=== PATIENT | male | born 1950 | race Caucasian/White ===

== ENCOUNTER 2017-11-29 15:15 | Inpatient (IN) | payer MEDICARE, BC ==
[~2017-11-29] VITALS: Ht 182.9 cm; Wt 83.9 kg
[2017-11-29] MEDS ORDERED: Isovue-300 100ml vial INJ PRN (15:30)
--- NOTE | 2017-11-29 15:39 | Emergency Room Report ---
History of Present Illness General Chief Complaint: Abdominal Pain Source: Patient Present Illness HPI 67-year-old male with a history of HIV, last CD4 a few months ago and undetectable Reports 2 weeks of intermittent abdominal pain, bandlike pain across the mid abdomen Sharp, nonradiating, improves with passing flatulence Partial relief with Gas-X No obvious exacerbating symptomatology Currently on antiretrovirals for many years Reports no changes in medications, no recent antibiotic use Denies vomiting nausea, diarrhea constipation, rectal bleeding Was sent by his primary doctor Dr. Sotelo for a CT scan Allergies: Coded Allergies: No Known Allergies (Unverified , 11/29/17) Patient History Past Medical History: see triage record Reviewed Nursing Documentation: PMH: Agreed; PSxH: Agreed Review of Systems All Other Systems: negative except mentioned in HPI Physical Exam Vital Signs Date Time Temp Pulse Resp B/P (MAP) Pulse Ox O2 Delivery O2 Flow Rate FiO2 11/29/17 15:19 98.5 98 20 120/69 95 Room Air 98.4 Sp02 EP Interpretation: reviewed, normal General Appearance: no apparent distress, alert, non-toxic Head: normocephalic Eyes: bilateral eye normal inspection, bilateral eye PERRL, bilateral eye EOMI ENT: normal ENT inspection, hearing grossly normal, normal pharynx, no angioedema, normal voice, moist mucus membranes Neck: normal inspection, full range of motion, supple, supple/symm/no masses Respiratory: chest non-tender, lungs clear, normal breath sounds, chest symmetrical, palpation of chest normal Cardiovascular #1: normal peripheral pulses, regular rate, rhythm Cardiovascular #2: 2+ radial (R), 2+ radial (L), 2+ femoral (R), 2+ femoral (L) Gastrointestinal: normal inspection, non tender, soft, no mass, no guarding, no rebound Rectal: deferred Genitourinary: normal inspection, no CVA tenderness, penis normal, scrotum normal Musculoskeletal: back normal, gait/station normal, normal range of motion, non- tender, no calf tenderness Neurologic: alert, responsive, mate fourth III-XII nml as tested, motor strength/tone normal, sensory intact, speech normal Psychiatric: judgement/insight normal, memory normal, mood/affect normal Skin: normal color, no rash, warm/dry, normal turgor Lymphatic: no adenopathy Medical Decision Making Diagnostic Impression: Primary Impression: Diverticulitis large intestine Additional Impression: Perforated abdominal viscus ER Course Patient found to have a perforated diverticulitis Started on IV antibiotics Patient remained stable Surgery notified, Dr. Fallon is on route Patient remains nothing by mouth Rhythm Strip Diag. Results Rhythm Strip Time: 18:36 EP Interpretation: yes Rate: 94 Rhythm: NSR, no PVC's, no ectopy CT/MRI/US Diagnostic Results CT/MRI/US Diagnostic Results : Imaging Test Ordered: ct abd pelvis Impression perf'd diverticulitis Last Vital Signs Date Time Temp Pulse Resp B/P (MAP) Pulse Ox O2 Delivery O2 Flow Rate FiO2 11/29/17 15:19 98.5 98 20 120/69 95 Room Air 98.4 Disposition: ADMITTED INPATIENT Condition: Stable Signed Out To: Dr. Fallon consulting, admitted to GISELLE Ochoa M.D November 29, 2017 15:39
[2017-11-29] MEDS ORDERED: Dicyclomine 10mg Cap ORAL SCH (16:10)
[2017-11-29] MEDS ORDERED: Dicyclomine HCl 10mg/5ml oral soln ONE (16:12)
[2017-11-29 16:13] LABS: APPEARANCE,URINE CLEAR; BILIRUBIN, URINE NEGATIVE (NEGATIVE); COLOR,URINE AMBER; GLUCOSE, URINE (UA) NEGATIVE (NEGATIVE); HEMATOCRIT 40.6 % (42.0-52.0); HEMOGLOBIN 14.2 G/DL (14.2-18.0); KETONES,URINE 2+ (NEGATIVE); LEUKOCYTE ESTERASE ,URINE 1+ (NEGATIVE); MEAN CORPUSCULAR VOLUME 91 FL (80-99); NITRITE,URINE NEGATIVE (NEGATIVE); PH,URINE 9 (4.5-8.0); PLATELET COUNT 178 K/UL (150-450); PROTEIN,URINE 1+ (NEGATIVE); RED BLOOD COUNT 4.47 M/UL (4.70-6.10); RED CELL DISTRIBUTION WIDTH 10.6 % (11.6-14.8); UROBILINOGEN,URINE 1 MG/DL (0.0-1.0); WHITE BLOOD COUNT 11.1 K/UL (4.8-10.8)
[2017-11-29 16:14] LABS: BASOPHILS % (AUTO) 0.2 % (0.0-2.0); LYMPHOCYTES % (AUTO) 10.5 % (20.0-45.0); MONOCYTES % (AUTO) 4.1 % (1.0-10.0); NEUTROPHILS % (AUTO) 85.1 % (45.0-75.0)
[2017-11-29 16:26] LABS: ANION GAP 8 mmol/L (5-15); BLOOD UREA NITROGEN 16 mg/dL (7-18); CALCIUM 9.2 MG/DL (8.5-10.1); CARBON DIOXIDE 28 MMOL/L (21-32); CHLORIDE 102 MMOL/L (98-107); CREATININE 0.9 MG/DL (0.55-1.30); POTASSIUM 3.5 MMOL/L (3.5-5.1); SODIUM 138 MMOL/L (136-145)
[2017-11-29 16:31] LABS: ALANINE AMINOTRANSFERASE 31 U/L (12-78); ALBUMIN 3.7 G/DL (3.4-5.0); ALBUMIN/GLOBULIN RATIO 1.1 (1.0-2.7); ALKALINE PHOSPHATASE 63 U/L (46-116); ASPARTATE AMINO TRANSFERASE 15 U/L (15-37)
[2017-11-29 18:00] VITALS: BP 117/67
[2017-11-29] MEDS ORDERED: Unasyn 3gm Inj IVPB ONE (18:30)
[2017-11-29] MEDS: Piperacillin/Tazobactam 3.375 GM in D5W 55 ML IV SCH ×2 (18:47→18:50)
--- NOTE | 2017-11-29 19:24 | Pre-Procedure Note/Attestation ---
Pre-Procedure Note/Attestation Complete Prior to Procedure Planned Procedure: not applicable Procedure Narrative: Exploratory laparotomy, possible bowel resection, possible ostomy Indications for Procedure Pre-Operative Diagnosis: Perforated sigmoid diverticulitis Attestation I attest that I discussed the nature of the procedure; its benefits; risks and complications; and alternatives (and the risks and benefits of such alternatives ), prior to the procedure, with the patient (or the patient's legal public utilities sales representative). I attest that, if there was a reasonable possibility of needing a blood transfusion, the patient (or the patient's legal public utilities sales representative) was given the [facility] standardized written summary, pursuant to the Chris Garwin Blood Safety Act ([place] Health and Safety Code # 1645, as amended). I attest that I re-evaluated the patient just prior to the surgery and that there has been no change in the patient's H&P, except as documented below: Quan Fallon November 29, 2017 19:24
--- NOTE | 2017-11-29 19:34 | Consultation ---
History of Present Illness General Date patient seen: November 29, 2017 Chief Complaint: Abdominal Pain Reason for Consultation: perforated sigmoid diverticulitis Present Illness HPI 67 year old male with history of HIV (controlled) presented to ED with complaints of abdominal pain. As per patient, he has had intermittent abdominal pain since his 30's. He believed it to be related to IBS and has moderated himself. Two weeks ago he had acute onset of lower abdominal pain which resolved without intervention but yesterday had another episode and has been feeling unwell since. States pain 6/10 lower/generalized abdominal cramping pain without radiation. no associated nausea or emesis. subjective fevers last night. has been having more frequent BM's since onset which are more loose than usual. Was at his PCP office today and on exam was noted to have abdominal tenderness, rebound and guarding. was recommended to come to ED for evaluation at which time was noted to have leukocytosis and CT scan noting free air. Surgery was called to evaluate. patient seen, chart reviewed, patient examined. Allergies: Coded Allergies: No Known Allergies (Unverified , 11/29/17) Patient History History Provided By: Patient, Medical Record, PMD Healthcare decision maker Resuscitation status Advanced Directive on File Past Medical/Surgical History Past Medical/Surgical History: (1) HIV (human immunodeficiency virus infection) (2) Diverticulitis large intestine (3) Perforated abdominal viscus Review of Systems Constitutional: Reports: fever Eye: Denies: no symptoms, see HPI, eye pain, blurred vision, tearing, double vision, nose pain, nose congestion, acuity changes, discharge, other ENT: Denies: no symptoms, see HPI, ear pain, ear discharge, nose pain, nose congestion, throat pain, throat swelling, mouth pain, hearing loss, nasal discharge, other Respiratory: Denies: no symptoms, see HPI, cough, orthopnea, shortness of breath, stridor, wheezing, WANG, sputum, other Cardiovascular: Denies: no symptoms, see HPI, chest pain, edema, palpitations, syncope, PND, other Gastrointestinal: Reports: abdominal pain Genitourinary: Denies: no symptoms, see HPI, discharge, dysuria, frequency, hematuria, pain, retention, incontinence, urgency, vag bleed/dc, other Musculoskeletal: Denies: no symptoms, see HPI, back pain, gout, joint pain, joint swelling, muscle pain, muscle stiffness, other Skin: Denies: no symptoms, see HPI, rash, change in color, change in hair/nails , dryness, lesions, other Psychiatric: Denies: no symptoms, see HPI, prior hx, anxiety, depressed feelings, emotional problems, SI, HI, hallucinations, other Neurological: Denies: no symptoms, see HPI, headache, numbness, paresthesia, seizure, tingling, tremors, focal weakness, syncope, dizziness, other Endocrine: Denies: no symptoms, see HPI, excessive sweating, flushing, intolerance to temperature, increased thirst, increased urine, unexplained weight loss, other Hematologic/Lymphatic: Denies: no symptoms, see HPI, anemia, blood clots, easy bleeding, easy bruising, swollen glands, diathesis, other Physical Exam General Appearance: WD/WN, alert, mild distress Lines, tubes and drains: peripheral HEENT: normocephalic, atraumatic, mucous membranes moist, PERRL Neck: supple Respiratory/Chest: lungs clear, normal breath sounds, no respiratory distress, no accessory muscle use Cardiovascular/Chest: normal peripheral pulses, normal rate, regular rhythm Abdomen: soft, no organomegaly, no mass, distended, guarding, rebound, tender, other - generalized tenderness with focal pelvic/LLQ peritonitis, rebound, guarding Extremities: normal range of motion, non-tender Skin Exam: normal pigmentation, warm/dry Neurologic: alert, oriented x 3, responsive Last 24 Hour Vital Signs Date Time Temp Pulse Resp B/P (MAP) Pulse Ox O2 Delivery O2 Flow Rate FiO2 11/29/17 18:00 89 17 117/67 99 Room Air 11/29/17 15:19 98.5 98 20 120/69 95 Room Air 98.4 Laboratory Tests Test 11/29/17 15:43 White Blood Count 11.1 K/UL (4.8-10.8) H Red Blood Count 4.47 M/UL (4.70-6.10) L Hemoglobin 14.2 G/DL (14.2-18.0) Hematocrit 40.6 % (42.0-52.0) L Mean Corpuscular Volume 91 FL (80-99) Mean Corpuscular Hemoglobin 31.8 PG (27.0-31.0) H Mean Corpuscular Hemoglobin Concent 35.1 G/DL (32.0-36.0) Red Cell Distribution Width 10.6 % (11.6-14.8) L Platelet Count 178 K/UL (150-450) Mean Platelet Volume 8.6 FL (6.5-10.1) Neutrophils (%) (Auto) 85.1 % (45.0-75.0) H Lymphocytes (%) (Auto) 10.5 % (20.0-45.0) L Monocytes (%) (Auto) 4.1 % (1.0-10.0) Eosinophils (%) (Auto) 0.0 % (0.0-3.0) Basophils (%) (Auto) 0.2 % (0.0-2.0) Urine Color Roxana Urine Appearance Clear Urine pH 9 (4.5-8.0) Urine Specific Merrill 1.010 (1.005-1.035) Urine Protein 1+ (NEGATIVE) H Urine Glucose (UA) Negative (NEGATIVE) Urine Ketones 2+ (NEGATIVE) H Urine Occult Blood 1+ (NEGATIVE) H Urine Nitrite Negative (NEGATIVE) Urine Bilirubin Negative (NEGATIVE) Urine Ictotest Negative Urine Urobilinogen 1 MG/DL (0.0-1.0) H Urine Leukocyte Esterase 1+ (NEGATIVE) H Urine RBC 5-10 /HPF (0 - 0) H Urine WBC 2-4 /HPF (0 - 0) Urine Squamous Epithelial Cells None /LPF (NONE/OCC) Urine Bacteria Occasional /HPF (NONE) Sodium Level 138 MMOL/L (136-145) Potassium Level 3.5 MMOL/L (3.5-5.1) Chloride Level 102 MMOL/L (98-107) Carbon Dioxide Level 28 MMOL/L (21-32) Anion Gap 8 mmol/L (5-15) Blood Urea Nitrogen 16 mg/dL (7-18) Creatinine 0.9 MG/DL (0.55-1.30) Estimat Glomerular Filtration Rate > 60 mL/min (>60) Glucose Level 117 MG/DL (74-106) H Calcium Level 9.2 MG/DL (8.5-10.1) Total Bilirubin 1.0 MG/DL (0.2-1.0) Aspartate Amino Transf (AST/SGOT) 15 U/L (15-37) Alanine Aminotransferase (ALT/SGPT) 31 U/L (12-78) Alkaline Phosphatase 63 U/L (46-116) Total Protein 7.2 G/DL (6.4-8.2) Albumin 3.7 G/DL (3.4-5.0) Globulin 3.5 g/dL Albumin/Globulin Ratio 1.1 (1.0-2.7) Lipase 52 U/L (73-393) L Height (Feet): 6 Weight (Pounds): 185 Medications Current Medications Medications (Trade) Dose Ordered Sig/Didier Route PRN Reason Start Time Stop Time Status Last Admin Dose Admin Iopamidol (Isovue-300 100ml) 100 ml NOW PRN INJ Radiology Procedure 11/29/17 15:30 11/29/17 21:00 Piperacillin Sod/ Tazobactam Sod 3.375 gm/Dextrose 55 ml @ 110 mls/hr Q8HR IV 11/29/17 18:45 11/30/17 18:44 11/29/17 18:47 Assessment/Plan Problem List: (1) Perforated abdominal viscus Assessment & Plan: Mr. Marcum is a very pleasant 67 year old male with perforated abdominal viscus likely perforated sigmoid colon. subjective fevers , leukocytosis, exam with LLQ/pelvic focal peritonitis and generalized tenderness, CT with free air and significant diverticular disease. Findings discussed with patient in detail. surgery recommended and indicated. risks, benefits, and alternatives discussed in detail. we discussed possibility of primary anastomosis vs colostomy (Willi's) vs primary anastomosis with loop ileostomy diversion. Given long standing history of abdominal complaints, two week history of recent events, and CT findings will need to determine best surgical option during exploration. patient expressed understanding and consented to surgery. -To OR for exploratory laparotomy, possible bowel resection, possible ostomy -NPO -IV fluids -IV Abx -labs -consent thank you SNOMED: [id number] Status: not improved VasylQuan November 29, 2017 19:34
[2017-11-29 19:35] VITALS: BP 118/75
[2017-11-29] MEDS ORDERED: Bupivacaine 0.5% Inj 30 ml vial INJ ONE (20:13)
[2017-11-29] MEDS ORDERED: Bacitracin 50000 Units Vial ONE (20:14)
[2017-11-29 20:30] VITALS: BP 104/51
[2017-11-29] MEDS ORDERED: Propofol 200mg/20ml IV ONE ×2 (20:30→23:08)
[2017-11-29] MEDS ORDERED: Lidocaine 1% MPF 10mg/ml 5ml ONE (20:30)
[2017-11-29] MEDS ORDERED: Midazolam 2mg/2ml Inj ONE (20:30)
[2017-11-29] MEDS ORDERED: fentaNYL 100 mcg/2 mL IV ONE (20:30)
[2017-11-29 20:32] LABS: INR 1.2 (0.9-1.1)
[2017-11-29] MEDS ORDERED: D5 1/2NS 1,000 ML IV SCH (20:46)
[2017-11-29] MEDS ORDERED: NS Irrig 1000ml ONE (21:00)
[2017-11-29] MEDS ORDERED: Miralax 17gm pkt ORAL PRN (21:00)
[2017-11-29] MEDS ORDERED: Succinylcholine 20mg/ml 10ml vial ONE (21:00)
[2017-11-29] MEDS ORDERED: Nitroglycerin Subl 0.4mg tab SL PRN (21:00)
[2017-11-29] MEDS ORDERED: Sodium Chloride 10ml vial INJ ONE ×2 (21:00→21:37)
[2017-11-29] MEDS ORDERED: LR 1000ml ONE (21:00)
[2017-11-29] MEDS ORDERED: Zemuron 50mg/5ml Inj IV ONE (21:00)
[2017-11-29] MEDS ORDERED: Sterile Water Irrig 1000ml IRRIG ONE (21:00)
[2017-11-29] MEDS ORDERED: Heparin 5000 units/ml inj SUBQ SCH (21:00)
[2017-11-29] MEDS ORDERED: Morphine Sulfate 10mg/ml Inj ONE (21:37)
[2017-11-29] MEDS ORDERED: Ketorolac 30mg Inj ONE (21:37)
[2017-11-29] MEDS ORDERED: Glycopyrrolate 0.2mg/ml 1ml Vial ONE (21:37)
--- NOTE | 2017-11-29 21:57 | Anethesia Preoperative Eval ---
Anesthesia Pre-op PMH/ROS General Date of Evaluation: November 29, 2017 Time of Evaluation: 20:40 Anesthesiologist: Kishor ASA Score: ASA 3 Mallampati Score Class I : Soft palate, uvula, fauces, pillars visible Class II: Soft palate, uvula, fauces visible Class III: Soft palate, base of uvula visible Class IV: Only hard plate visible Mallampati Classification: Class II Surgeon: Tod Diagnosis: Perforated bowel Surgical Procedure: Exploratory laparotomy Anesthesia History: none Social History: drug use - Canabis Family History: no anesthesia problems Allergies: Coded Allergies: No Known Allergies (Unverified , 11/29/17) Medications: see eMAR Past Medical History Cardiovascular: Reports: HTN - mild; Denies: CAD, DC, valve dz, arrhythmia, other Pulmonary: Denies: asthma, COPD, DARCY, other Gastrointestinal/Genitourinary: Reports: GERD, other - recurrent abdominal pain ; Denies: CRI, ESRD Neurologic/Psychiatric: Reports: depression/anxiety Endocrine: Denies: DM, hypothyroidism, steroids, other HEENT: Denies: cataract (L), cataract (R), glaucoma, [place] (L), [place] (R), other Hematology/Immune: Reports: other - HIV stable on antivirals; Denies: anemia, DVT, bleeding disorder Musculoskeletal/Integumentary: Denies: OA, RA, DJD, DDD, edema, other PMH Narrative: as above PSxH Narrative: Hernia repair Anesthesia Pre-op Phys. Exam Physician Exam Last Vital Signs Date Time Temp Pulse Resp B/P (MAP) Pulse Ox O2 Delivery O2 Flow Rate FiO2 11/29/17 18:00 89 17 117/67 99 Room Air 11/29/17 15:19 98.5 98.4 Constitutional: NAD Neurologic: CN 2-12 intact Cardiovascular: RRR, no M/R/G Respiratory: CTA Gastrointestinal: other - tener , distended Airway Exam Mallampati Score: Class II MO: full Neck: flexible ROM: full Teeth: intact Dentures: no upper, no lower Anesthesia Pre-op A/P Labs Hematology Test 11/29/17 15:43 White Blood Count 11.1 K/UL (4.8-10.8) H Red Blood Count 4.47 M/UL (4.70-6.10) L Hemoglobin 14.2 G/DL (14.2-18.0) Hematocrit 40.6 % (42.0-52.0) L Mean Corpuscular Volume 91 FL (80-99) Mean Corpuscular Hemoglobin 31.8 PG (27.0-31.0) H Mean Corpuscular Hemoglobin Concent 35.1 G/DL (32.0-36.0) Red Cell Distribution Width 10.6 % (11.6-14.8) L Platelet Count 178 K/UL (150-450) Mean Platelet Volume 8.6 FL (6.5-10.1) Neutrophils (%) (Auto) 85.1 % (45.0-75.0) H Lymphocytes (%) (Auto) 10.5 % (20.0-45.0) L Monocytes (%) (Auto) 4.1 % (1.0-10.0) Eosinophils (%) (Auto) 0.0 % (0.0-3.0) Basophils (%) (Auto) 0.2 % (0.0-2.0) Coagulation Test 11/29/17 19:40 Prothrombin Time 12.6 SEC (9.30-11.50) H Prothromb Time International Ratio 1.2 (0.9-1.1) H Activated Partial Thromboplast Time 32 SEC (23-33) Chemistry Test 11/29/17 15:43 Sodium Level 138 MMOL/L (136-145) Potassium Level 3.5 MMOL/L (3.5-5.1) Chloride Level 102 MMOL/L (98-107) Carbon Dioxide Level 28 MMOL/L (21-32) Anion Gap 8 mmol/L (5-15) Blood Urea Nitrogen 16 mg/dL (7-18) Creatinine 0.9 MG/DL (0.55-1.30) Estimat Glomerular Filtration Rate > 60 mL/min (>60) Glucose Level 117 MG/DL (74-106) H Calcium Level 9.2 MG/DL (8.5-10.1) Total Bilirubin 1.0 MG/DL (0.2-1.0) Aspartate Amino Transf (AST/SGOT) 15 U/L (15-37) Alanine Aminotransferase (ALT/SGPT) 31 U/L (12-78) Alkaline Phosphatase 63 U/L (46-116) Total Protein 7.2 G/DL (6.4-8.2) Albumin 3.7 G/DL (3.4-5.0) Globulin 3.5 g/dL Albumin/Globulin Ratio 1.1 (1.0-2.7) Lipase 52 U/L (73-393) L Studies Pre-op Studies: EKG - SR Risk Assessment & Plan Assessment: ASA 3 Plan: GA with ETT Status Change Before Surgery: No Pre-Antibiotics Drug: as scheduled FERNANDO MCKEON M.D. November 29, 2017 21:57
[2017-11-29] MEDS ORDERED: Meperidine 50mg/ml Inj(FOR RIGORS ONLY) IV PRN (22:00)
[2017-11-29] MEDS ORDERED: DiphenhydrAMINE 50mg/ml Inj IVP PRN ×2 (22:00→23:45)
[2017-11-29] MEDS ORDERED: Midazolam 2mg/2ml Inj IVP PRN (22:00)
[2017-11-29] MEDS ORDERED: fentaNYL 100 mcg/2 mL IV PRN (22:00)
[2017-11-29] MEDS ORDERED: Ketorolac 30mg Inj IV PRN (22:00)
[2017-11-29] MEDS ORDERED: LR 1000ml 1,000 ML IVLG SCH (22:00)
[2017-11-29 23:40] VITALS: BP 114/54
--- NOTE | 2017-11-29 23:42 | Brief Operative Note ---
Immediate Post Operative Note Operative Note Pre-op Diagnosis: Perforated sigmoid diverticulitis Procedure: exploratory laparotomy, sigmoid colectomy, primary end to end anastomosis Post-op Diagnosis: same as pre-op Surgeon: melissa Anesthesiologist: donnell Anesthesia: general Specimen: yes - sigmoid colon Complications: none Condition: stable Fluids: see anesthesia records Estimated Blood Loss: minimal - 100 Drains: none Implant(s) used?: No Quan Fallon November 29, 2017 23:42
[2017-11-29 23:45] VITALS: BP 109/58
[2017-11-29] MEDS ORDERED: Morphine Sulfate 4mg/ml Inj IVP PRN (23:45)
[2017-11-29 23:50] VITALS: BP 115/60
--- NOTE | 2017-11-29 23:52 | Immediate Post-Op Evaluation ---
Immediate Post-Op Evalulation Immediate Post-Op Evalulation Procedure: Exploratory laparotomy sigmoid colectomy Date of Evaluation: November 29, 2017 Time of Evaluation: 23:50 IV Fluids: 1600 Blood Products: none Estimated Blood Loss: 100 Urinary Output: 200 Blood Pressure Systolic: 109 Blood Pressure Diastolic: 58 Pulse Rate: 102 Respiratory Rate: 22 O2 Sat by Pulse Oximetry: 98 Temperature (Fahrenheit): 98.8 Pain Score (1-10): 2 Nausea: No Vomiting: No Complications none Patient Status: reacts, patent, extubated, none Hydration Status: adequate FERNANDO MCKEON M.D. November 29, 2017 23:52
[2017-11-30] VITALS (13 sets, daily range): BP systolic 91–124; BP diastolic 52–65
[2017-11-30] MEDS ORDERED: TIVICAY50 MG ORAL (02:18)
[2017-11-30] MEDS ORDERED: CRESTOR10 M1 ORAL (02:18)
[2017-11-30] MEDS ORDERED: PREZCOBIX 8001 EACH PO (02:18)
[2017-11-30] MEDS ORDERED: FISH OIL 1,4001 EAC1 PO (02:18)
[2017-11-30] MEDS ORDERED: CRESTOR40 MG ORAL ×2 (02:18)
[2017-11-30] MEDS ORDERED: VYTORIN 10-101 EACH ORAL (02:18)
--- NOTE | 2017-11-30 03:45 | Operative Note - Dictated ---
DATE OF OPERATION: 11/29/2017 PREOPERATIVE DIAGNOSIS: Perforated abdominal viscus. POSTOPERATIVE DIAGNOSIS: Perforated sigmoid diverticulitis. OPERATION PERFORMED: 1. Exploratory laparotomy. 2. Sigmoid colectomy. 3. Primary end-to-end anastomosis. 4. Abdominal washout. SURGEON: Quan Fallon M.D. TRAVELING PHLEBOTOMIST: None. ANESTHESIOLOGIST: Nicola Iverson M.D. ANESTHESIA: General SPEECH PATHOLOGY SUPERVISOR. ESTIMATED BLOOD LOSS: 100 mL. IV FLUIDS: Please see anesthesia records. COMPLICATIONS: None. DRAINS: None. SPECIMENS: Sigmoid colon sent to pathology for review. IMPLANTS: None. WOUND CLASSIFICATION: Class III. COUNTS: Sponge and needle count correct x2. ANTIBIOTICS: The patient given 3.375 IV Zosyn 1 hour prior to cut time. INDICATIONS FOR PROCEDURE: This is a 67-year-old male with long history of intermittent abdominal pain, who 2 weeks ago had an acute episode of generalized lower abdominal pain which resolved for a few days until a second acute episode with worsening pain beginning yesterday. The patient has been feeling unwell since, has subjective fevers, and describes lower abdominal pain with some focal area of the left lower quadrant. The patient was seen earlier today by his primary care physician who on examination identified tenderness with rebound and guarding and recommended the patient to come to the emergency department for evaluation. In the emergency department, the patient was noted to have leukocytosis and CT scan identified free air and likely perforated sigmoid colon. On examination, the patient had focal left lower quadrant and pelvic peritonitis and generalized abdominal tenderness with rebound and guarding. After reviewing the above details with the patient, exploration was indicated and recommended. Risks, benefits, and alternatives to surgery including possibility of colostomy, loop ostomy, reoperation, bleeding, infection, primary anastomosis, anastomotic failure, sepsis, wound infection, dehiscence, and potentially evisceration as well as other complications were discussed with the patient in detail. The patient expressed understanding and consented to surgery. OPERATIVE NOTE: The patient was taken to the operating room directly from the emergency department. The patient was placed on the operating table in supine position with bilateral arms out. All bony prominences were well padded. SCDs were placed. Preoperative time-out was taken identifying the patient, procedure, operative staff, and surgical staff. The patient already had 3.375 of IV Zosyn prior to entering the operating room. General anesthesia was induced and the patient was intubated. A Baxter catheter was inserted using standard sterile technique. The abdomen was then clipped, prepped, and draped in standard surgical fashion. A midline incision was made from the umbilicus to the pubic tubercle. Incision was carried down through the subcutaneous tissues to the fascia using electrocautery. The fascia was incised and elevated and entry into the abdomen was obtained without complication. A Bookwalter retractor was then inserted and appropriate visualization identified some free fluid in the abdomen, some dense adhesions from the sigmoid colon in the pelvis, and an area of perforated sigmoid diverticulitis with surrounding inflammatory tissue, but no gross pus or stool. At this time, the sigmoid colon was freed from its lateral attachments and mobilized into the operative field. The proximal descending colon and the distal sigmoid colon to the peritoneal reflection was evaluated and approximately 10 cm from the peritoneal reflection proximally of sigmoid colon, there was healthy sigmoid colon without any inflamed wound or any inflammation or diverticular disease, just a significant segment proximal to the area of inflammation and perforation and until the area about the descending colon. The descending colon was evaluated and no significant diverticular disease or abnormalities were noted. At this time, a proximal and distal area of resection was identified and a mesenteric window was made using electrocautery. A linear RAFFI-75 stapler was then used to divide the proximal and distal ends. The remaining mesentery was then scored and divided using Thunderbeat energy device. A 3-0 silk ties were used to help achieve hemostasis as necessary from the mesentery. The superior hemorrhoidals and distal branches of the sigmoid artery from the inferior mesenteric artery were preserved. Once the specimen was excised at all, it was placed in formalin and sent to pathology for review. The abdomen was then inspected and washed out with copious amounts of warm normal saline with one liter of it being infused with bacitracin. Following completion of washout, the proximal and distal bowel ends were identified. They came together nicely. After some mobilization of the white line of Toldt, the proximal and distal ends of the distal remaining colon came together nicely without any tension. The blood supply was adequate and pink and perfused. The patient was hemodynamically stable without any significant medical history. At this time, decision was made to proceed with primary end-to-end anastomosis. The bowel ends were cleared off and a posterior row of 3-0 silk Lembert sutures were placed. The staple lines were then excised using Metzenbaum scissors and the bowel was then run circumferentially using a 3-0 Vicryl suture for an end-to-end primary anastomosis. Following this, an anterior layer of 3-0 silk Lembert sutures were placed. The bowel was checked and identified to be patent. There was good blood supply with bleeding from the cut bowel ends prior to completion of primary anastomosis. There was good hemostasis at the completion of the anastomosis. At this time, the pelvis was then irrigated and washed out again. The bowel was identified and the mesenteric defect between the bowel was closed using multiple 3-0 silk sutures. At this time, no other abnormalities were found and decision was made to begin the conclusion of our procedure. All sponge and needle count were identified and noted to be correct. The small bowel was allowed to lay in its anatomic position and the omentum was draped over the small bowel in the abdomen. The hemostasis was achieved from the midline wound using electrocautery and the closure of the abdominal fascia was completed using a #0 looped PDS suture. Following this, the midline wound was irrigated with copious amounts of sterile saline followed by closure of the skin using surgical thelma. Dressings were placed. The patient tolerated the procedure well, was extubated, and taken to the postanesthetic care unit in stable condition. Quan Fallon M.D. DR: TIM JOB#: [id number] CC: CAROLINE
[2017-11-30] MEDS ORDERED: Piperacillin/Tazobactam 3.375 GM in NS 110 ML IVPB SCH (04:00)
[2017-11-30] MEDS ORDERED: LEXAPRO10 MG ORAL (04:02)
[2017-11-30] MEDS: D5 1/2NS w/KCl 20mEq 1,000 ML IV SCH ×4 (05:40→23:45)
[2017-11-30] MEDS: Piperacillin/Tazobactam 3.375 GM in NS 110 ML IVPB SCH ×2 (05:41→14:18)
[2017-11-30] MEDS: Pantoprazole Inj IVP SCH (08:23)
[2017-11-30] MEDS: Heparin 5000 units/ml inj SUBQ SCH ×2 (08:24→21:26)
--- NOTE | 2017-11-30 09:55 | Diagnostic Imaging Report ---
Indication: Abdominal pain Technique: Continuous helical transaxial imaging of the abdomen and pelvis was obtained from the lung bases to the pubic symphysis during intravenous contrast administration. Coronal 2-D reformats were also obtained. Study obtained in a Siemens sensation [address] Automatic Exposure Control was utilized. Total Dose length Product (DLP): 862.[address] Dose Index Volume (CTDIvol): 15.23 mGy Comparison: None Findings: There is a moderate degree of inflammation in the left lower quadrant of the abdomen in association with the sigmoid colon. Findings likely due to acute diverticulitis as there are multiple diverticula in the area. There is no abscess. Trace free air noted in the upper abdomen probably associated with the diverticulitis. There is no evidence of bowel obstruction. There are generalized mild distended fluid-filled loops of small bowel likely ileus. There is a left inguinal hernia containing fat. Slight thickening of the wall of the urinary bladder is noted. There is no hydronephrosis. Mild calcification of aorta demonstrated. Pancreas, spleen and liver are unremarkable. There is no adrenal mass. Gallbladder is unremarkable. Aorta is mildly calcified. There is narrowing of intervertebral discs and accompanying endplate osteophyte formation. Hypertrophied facet joints also demonstrated.. IMPRESSION: Acute sigmoid diverticulitis. No drainable abscess. Small amount of free air within the peritoneal cavity noted. Other incidental findings include reactive small bowel ileus, small left inguinal hernia, thickening of the urinary bladder wall which may be due to cystitis. [facility] has communicated the preliminary results to the Emergency Department. Their findings are largely concordant with this report. Critical value communication. Findings were discussed by Dr. Rivera via telephone with Kaden in the emergency department 11/29/2017, 18:19. The CT scanner at [facility] is accredited by the [employer] and the scans are performed using dose optimization techniques as appropriate to a performed exam including Automatic Exposure control.
[2017-11-30 10:20] LABS: ALANINE AMINOTRANSFERASE 26 U/L (12-78); ALBUMIN 2.6 G/DL (3.4-5.0); ALBUMIN/GLOBULIN RATIO 0.7 (1.0-2.7); ALKALINE PHOSPHATASE 52 U/L (46-116); AMYLASE 25 U/L (25-115); ANION GAP 10 mmol/L (5-15); ASPARTATE AMINO TRANSFERASE 18 U/L (15-37); BILIRUBIN,TOTAL 0.9 MG/DL (0.2-1.0); BLOOD UREA NITROGEN 16 mg/dL (7-18); CARBON DIOXIDE 22 MMOL/L (21-32); CHLORIDE 107 MMOL/L (98-107); CREATININE 0.9 MG/DL (0.55-1.30); POTASSIUM 3.8 MMOL/L (3.5-5.1); SODIUM 139 MMOL/L (136-145)
[2017-11-30 10:35] LABS: BASOPHILS % (AUTO) 0.4 % (0.0-2.0); EOSINOPHILS % (AUTO) 0.4 % (0.0-3.0); HEMATOCRIT 38.6 % (42.0-52.0); HEMOGLOBIN 13.3 G/DL (14.2-18.0); LYMPHOCYTES % (AUTO) 10.4 % (20.0-45.0); MEAN CORPUSCULAR VOLUME 91 FL (80-99); MONOCYTES % (AUTO) 4.9 % (1.0-10.0); PLATELET COUNT 153 K/UL (150-450); RED BLOOD COUNT 4.24 M/UL (4.70-6.10); RED CELL DISTRIBUTION WIDTH 10.9 % (11.6-14.8); WHITE BLOOD COUNT 9.3 K/UL (4.8-10.8)
--- NOTE | 2017-11-30 10:48 | 48 Hour Post Anesthesia Eval ---
Post Anesthesia Evaluation Procedure: Exploratory laparotomy sigmoid colectomy Date of Evaluation: November 30, 2017 Time of Evaluation: 10:46 Blood Pressure Systolic: 116 0: 72 Pulse Rate: 68 Respiratory Rate: 22 Temperature (Fahrenheit): 97.8 O2 Sat by Pulse Oximetry: 98 Airway: patent Nausea: No Vomiting: No Pain Intensity: 3 Hydration Status: adequate Cardiopulmonary Status: stable Mental Status/LOC: patient returned to baseline Follow-up Care/Observations: n/a Post-Anesthesia Complications: none Follow-up care needed: N/A Nicola Iverson MD November 30, 2017 10:48
--- NOTE | 2017-11-30 11:28 | General Progress Note ---
Progress Note Progress Note Surgery: doing well. no acute events. pain well controlled. no n/v/f/c. ambulatory. using IS afebrile, HD stable, labs okay exam benign. abd soft, incision c/d/i, mild distention, mild tender POD #1 s/p ex lap with sigmoid resection -npo -iv fluids -cont iv abx -cont berry -heparin -scd's -incentive spirometry -ambulate and out of bed. -rx as written Quan Fallon November 30, 2017 11:28
--- NOTE | 2017-11-30 11:35 | GI Initial Consult Note ---
History of Present Illness General Date patient seen: November 30, 2017 Time patient seen: 11:29 Reason for Hospitalization: Abdominal Pain Referring physician: ANKUSH BRAN Reason for Consultation: DIVERTICULITIS Present Illness HPI 67-year-old male with a history of HIV, last CD4 a few months ago and undetectable Reports 2 weeks of intermittent abdominal pain, bandlike pain across the mid abdomen Sharp, nonradiating, improves with passing flatulence Partial relief with Gas-X No obvious exacerbating symptomatology Currently on antiretrovirals for many years Reports no changes in medications, no recent antibiotic use Denies vomiting nausea, diarrhea constipation, rectal bleeding Was sent by his primary doctor Dr. Sotelo for a CT scan. GI consulted for diverticulitis. Pt seen, awake A&Ox4 NAD with no active s/sx of N/V/D. Patient is now POD #1 s/p ex lap with sigmoid resection. Abdomen soft tender with surgical dressing assessed, C/D/I. No reports of flatus at this time. Pain is 4/10, tolerable. Presented today with mild leukocytosis. Unknown history of endoscopy / colonoscopy. Home Meds Reported Medications Escitalopram Oxalate* (LEXAPRO*) 10 Mg Tablet, 10 MG ORAL DAILY, TAB 11/30/17 [place]-3/Dha/Epa/Fish Oil (FISH OIL 1,400 MG SOFTGEL) 1 Each Capsule.dr, 1 EACH PO, CAP 11/30/17 Ezetimibe/Simvastatin 10-10MG (VYTORIN 10-10 MG TABLET) 1 Each Tablet, 1 TAB ORAL DAILY, TAB 11/30/17 Rosuvastatin Calcium* (CRESTOR*) 40 Mg Tablet, 40 MG ORAL QHS, TAB 11/30/17 Rosuvastatin Calcium* (CRESTOR*) 40 Mg Tablet, 40 MG ORAL DAILY, TAB 11/30/17 Rosuvastatin Calcium (Crestor) 5 Mg Tablet, 10 MG ORAL DAILY, TAB 11/30/17 Dolutegravir Sodium (Tivicay) 50 Mg Tablet, 50 MG ORAL DAILY, TAB 11/30/17 Darunavir/Cobicistat (Prezcobix 800 mg-150 mg Tablet) 1 Each Tablet, 1 EACH PO DAILY, TAB 11/30/17 Med list reviewed/reconciled: Yes Allergies: Coded Allergies: No Known Allergies (Unverified , 11/29/17) Patient History History Provided By: Patient, Medical Record PMH Narrative Past Medical History: see triage record Reviewed Nursing Documentation: PMH: Agreed; PSxH: Agreed Social History: Denies: smoking, alcohol use, drug use, other Review of Systems All Other Systems: negative except mentioned in HPI Physical Exam Vital Signs Date Time Temp Pulse Resp B/P (MAP) Pulse Ox O2 Delivery O2 Flow Rate FiO2 11/29/17 15:19 98.5 98 20 120/69 95 Room Air 98.4 11/29/17 23:40 6.0 Sp02 EP Interpretation: reviewed, normal Labs Laboratory Tests Test 11/29/17 15:43 11/29/17 19:40 11/30/17 09:25 White Blood Count 11.1 K/UL (4.8-10.8) H 9.3 K/UL (4.8-10.8) Red Blood Count 4.47 M/UL (4.70-6.10) L 4.24 M/UL (4.70-6.10) L Hemoglobin 14.2 G/DL (14.2-18.0) 13.3 G/DL (14.2-18.0) L Hematocrit 40.6 % (42.0-52.0) L 38.6 % (42.0-52.0) L Mean Corpuscular Volume 91 FL (80-99) 91 FL (80-99) Mean Corpuscular Hemoglobin 31.8 PG (27.0-31.0) H 31.3 PG (27.0-31.0) H Mean Corpuscular Hemoglobin Concent 35.1 G/DL (32.0-36.0) 34.4 G/DL (32.0-36.0) Red Cell Distribution Width 10.6 % (11.6-14.8) L 10.9 % (11.6-14.8) L Platelet Count 178 K/UL (150-450) 153 K/UL (150-450) Mean Platelet Volume 8.6 FL (6.5-10.1) 8.6 FL (6.5-10.1) Neutrophils (%) (Auto) 85.1 % (45.0-75.0) H 84.0 % (45.0-75.0) H Lymphocytes (%) (Auto) 10.5 % (20.0-45.0) L 10.4 % (20.0-45.0) L Monocytes (%) (Auto) 4.1 % (1.0-10.0) 4.9 % (1.0-10.0) Eosinophils (%) (Auto) 0.0 % (0.0-3.0) 0.4 % (0.0-3.0) Basophils (%) (Auto) 0.2 % (0.0-2.0) 0.4 % (0.0-2.0) Urine Color [place]oxana Urine Appearance Clear Urine pH 9 (4.5-8.0) Urine Specific [place] 1.010 (1.005-1.035) Urine Protein 1+ (NEGATIVE) H Urine Glucose (UA) Negative (NEGATIVE) Urine Ketones 2+ (NEGATIVE) H Urine Occult Blood 1+ (NEGATIVE) H Urine Nitrite Negative (NEGATIVE) Urine Bilirubin Negative (NEGATIVE) Urine Ictotest Negative Urine Urobilinogen 1 MG/DL (0.0-1.0) H Urine Leukocyte Esterase 1+ (NEGATIVE) H Urine RBC 5-10 /HPF (0 - 0) H Urine WBC 2-4 /HPF (0 - 0) Urine Squamous Epithelial Cells None /LPF (NONE/OCC) Urine Bacteria Occasional /HPF (NONE) Sodium Level 138 MMOL/L (136-145) 139 MMOL/L (136-145) Potassium Level 3.5 MMOL/L (3.5-5.1) 3.8 MMOL/L (3.5-5.1) Chloride Level 102 MMOL/L (98-107) 107 MMOL/L (98-107) Carbon Dioxide Level 28 MMOL/L (21-32) 22 MMOL/L (21-32) Anion Gap 8 mmol/L (5-15) 10 mmol/L (5-15) Blood Urea Nitrogen 16 mg/dL (7-18) 16 mg/dL (7-18) Creatinine 0.9 MG/DL (0.55-1.30) 0.9 MG/DL (0.55-1.30) Estimat Glomerular Filtration Rate > 60 mL/min (>60) > 60 mL/min (>60) Glucose Level 117 MG/DL (74-106) H 138 MG/DL (74-106) H Calcium Level 9.2 MG/DL (8.5-10.1) 8.0 MG/DL (8.5-10.1) L Total Bilirubin 1.0 MG/DL (0.2-1.0) 0.9 MG/DL (0.2-1.0) Aspartate Amino Transf (AST/SGOT) 15 U/L (15-37) 18 U/L (15-37) Alanine Aminotransferase (ALT/SGPT) 31 U/L (12-78) 26 U/L (12-78) Alkaline Phosphatase 63 U/L (46-116) 52 U/L (46-116) Total Protein 7.2 G/DL (6.4-8.2) 6.1 G/DL (6.4-8.2) L Albumin 3.7 G/DL (3.4-5.0) 2.6 G/DL (3.4-5.0) L Globulin 3.5 g/dL 3.5 g/dL Albumin/Globulin Ratio 1.1 (1.0-2.7) 0.7 (1.0-2.7) L Lipase 52 U/L (73-393) L 39 U/L (73-393) L Prothrombin Time 12.6 SEC (9.30-11.50) H Prothromb Time International Ratio 1.2 (0.9-1.1) H Activated Partial Thromboplast Time 32 SEC (23-33) 33 SEC (23-33) Amylase Level 25 U/L (25-115) General Appearance: well appearing, no apparent distress, alert Head: normocephalic EENT: PERRL/EOMI, normal ENT inspection Neck: supple Respiratory: normal breath sounds, no respiratory distress Cardiovascular: normal rate Gastrointestinal: normal inspection, non tender, soft, normal bowel sounds, non -distended, other - surgical site Rectal: deferred Genitourinary: deferred Musculoskeletal: normal inspection, back normal Neurologic: normal inspection, alert, oriented x3, responsive Psychiatric: normal inspection, judgement/insight normal, memory normal Skin: normal inspection, normal color, no rash, warm/dry, palpation normal, well hydrated Lymphatic: normal inspection, no adenopathy Current Medications Current Medications Medications (Trade) Dose Ordered Sig/Didier Route PRN Reason Start Time Stop Time Status Last Admin Dose Admin Acetaminophen (Tylenol) 650 mg Q6H PRN ORAL Mild Pain (Pain Scale 1-3) 11/29/17 23:45 12/29/17 23:44 Al Hydroxide/Mg Hydroxide (Mylanta II) 30 ml Q6H PRN ORAL dyspepsia 11/29/17 21:00 12/29/17 20:59 Al Hydroxide/Mg Hydroxide (Mylanta) 15 ml Q6H PRN ORAL DYSPEPSIA 11/29/17 23:45 12/29/17 23:44 Dextrose (Dextrose 50%) STAT PRN IV Hypoglycemia 11/29/17 21:00 12/29/17 20:59 Dextrose/ Electrolytes 1,000 ml @ 125 mls/hr Q8H IV 11/29/17 23:42 12/29/17 23:41 11/30/17 05:40 Diphenhydramine HCl (Benadryl) 12.5 mg Q6H PRN IVP Itching/Pruritis 11/29/17 23:45 12/29/17 23:44 Heparin Sodium (Porcine) (Heparin 5000 units/ml) 5,000 units EVERY 12 HOURS SUBQ 11/30/17 09:00 12/30/17 08:59 11/30/17 08:24 Ketorolac Tromethamine (Toradol 30mg) 15 mg Q6H PRN IV For Pain 11/29/17 23:45 12/04/17 23:44 Morphine Sulfate (Morphine Sulfate) 4 mg Q2H PRN IVP pain 11/30/17 00:00 12/07/17 00:00 Nitroglycerin (Ntg) 0.4 mg Q5M X 3 DOSES PRN SL Prn Chest Pain 11/29/17 21:00 12/29/17 20:59 Ondansetron HCl (Zofran) 4 mg Q6H PRN IVP Nausea & Vomiting 11/29/17 23:45 12/29/17 23:44 Pantoprazole (Protonix) 40 mg DAILY IVP 11/30/17 09:00 12/30/17 08:59 11/30/17 08:23 Piperacillin Sod/ Tazobactam Sod 3.375 gm/Sodium Chloride 110 ml @ 27.5 mls/hr Q8H IVPB 11/30/17 05:00 12/07/17 04:59 11/30/17 05:41 Temazepam (Restoril) 15 mg HSPRN PRN ORAL Insomnia 11/29/17 21:00 12/06/17 20:59 11/30/17 01:49 GI: Plan Problems: (1) Post-operative nausea and vomiting (2) Post-operative pain (3) Perforated sigmoid colon (4) Diverticulitis large intestine (5) Perforated abdominal viscus Plan POD #1 s/p ex lap with sigmoid resection post operative management >> fu surgical recs maintain NPO + IVFs zofran prn pain mgmt IS fu labs outpatient GI procedures Discussed with Dr. Arellano. Thank you for this patient referral, we will follow. The patient was seen and examined at bedside and all new and available data was reviewed in the patients chart. I agree with the above findings, impression and plan. (Patient seen earlier today. Signature stamp does not reflect patient encounter time.). - MD Mai Hunter Anh-Sha [employer] November 30, 2017 11:35
[2017-11-30] MEDS: Ketorolac 30mg Inj IV PRN ×2 (12:28→21:20)
--- NOTE | 2017-11-30 13:31 | History and Physical ---
History of Present Illness General Date patient seen: November 30, 2017 Reason for Hospitalization: Abdominal Pain Present Illness HPI 67 year old male with history of HIV and IBD presented to ED with complaints of abdominal pain. Pt stated his pain is around 6/10 lower/generalized abdominal cramping pain without radiation. Pt was noted to have abdominal tenderness, rebound and guarding. Initial evaluation revealed that he has leukocytosis and CT scan noting free air and sigmoid diverticulitis. Surgery was called to evaluate. He underwent emergent laparatomy and transferred postoperatively to surgical floor for further evaluation. Allergies: Coded Allergies: No Known Allergies (Unverified , 11/29/17) Medication History Scheduled Darunavir/Cobicistat (Prezcobix 800 mg-150 mg Tablet), 1 EACH PO DAILY, ( Reported) Dolutegravir Sodium (Tivicay), 50 MG ORAL DAILY, (Reported) Escitalopram Oxalate* (Lexapro*), 10 MG ORAL DAILY, (Reported) Ezetimibe/Simvastatin 10-10MG (Vytorin 10-10 Mg Tablet), 1 TAB ORAL DAILY, ( Reported) Rosuvastatin Calcium (Crestor), 10 MG ORAL DAILY, (Reported) Rosuvastatin Calcium* (Crestor*), 40 MG ORAL DAILY, (Reported) Rosuvastatin Calcium* (Crestor*), 40 MG ORAL QHS, (Reported) Miscellaneous Medications [place]-3/Dha/Epa/Fish Oil (Fish Oil 1,400 Mg Softgel), 1 EACH PO, (Reported) Patient History Healthcare decision maker Resuscitation status Advanced Directive on File Past Medical/Surgical History Past Medical/Surgical History: (1) HIV (human immunodeficiency virus infection) Review of Systems All Other Systems: negative except mentioned in HPI Physical Exam General Appearance: WD/WN Lines, tubes and drains: peripheral HEENT: normocephalic, atraumatic Neck: normal alignment Respiratory/Chest: chest wall non-tender, lungs clear Breasts: no masses Cardiovascular/Chest: normal rate Abdomen: normal bowel sounds Genitourinary/Rectal: normal genital exam Last 24 Hour Vital Signs Date Time Temp Pulse Resp B/P (MAP) Pulse Ox O2 Delivery O2 Flow Rate FiO2 11/30/17 12:58 97.8 11/30/17 12:28 97.8 11/30/17 10:48 208.0 68 22 98 11/30/17 08:00 98.1 87 18 111/60 94 Room Air 98.1 11/30/17 04:00 18 105/56 96 Nasal Cannula 3.0 11/30/17 01:30 86 20 103/53 94 Nasal Cannula 3.0 11/30/17 01:15 97 20 92/59 95 Nasal Cannula 3.0 11/30/17 01:00 100 20 91/55 92 Nasal Cannula 3.0 11/30/17 00:45 98.2 97 20 104/52 95 Nasal Cannula 3.0 98.2 11/30/17 00:35 9 20 111/57 95 Nasal Cannula 3.0 11/30/17 00:20 98.0 97 20 109/56 95 Nasal Cannula 3.0 98.0 11/30/17 00:10 97 21 111/57 96 Nasal Cannula 3.0 11/30/17 00:00 98 18 107/60 95 Nasal Cannula 3.0 11/29/17 23:52 209.8 102 22 98 11/29/17 23:50 103 26 115/60 96 Simple Mask 6.0 11/29/17 23:45 105 24 109/58 95 Simple Mask 6.0 11/29/17 23:40 98.5 108 20 114/54 97 Simple Mask 6.0 98.5 11/29/17 20:50 99.3 96 23 104/51 97 Room Air 11/29/17 20:30 99.3 96 23 104/51 97 Room Air 99.3 11/29/17 19:35 99.3 102 28 118/75 99 Room Air 99.3 11/29/17 18:00 89 17 117/67 99 Room Air 11/29/17 15:19 98.5 98 20 120/69 95 Room Air 98.4 Intake and Output 11/29/17 11/30/17 19:00 07:00 Intake Total 1002 ml 2035 ml Output Total 300 ml Balance 1002 ml 1735 ml Intake IV Total 1002 ml 2035 ml Output Urine Total 200 ml Estimated Blood Loss 100 ml # Voids 1 Laboratory Tests Test 11/29/17 15:43 11/29/17 19:40 11/30/17 09:25 White Blood Count 11.1 K/UL (4.8-10.8) H 9.3 K/UL (4.8-10.8) Red Blood Count 4.47 M/UL (4.70-6.10) L 4.24 M/UL (4.70-6.10) L Hemoglobin 14.2 G/DL (14.2-18.0) 13.3 G/DL (14.2-18.0) L Hematocrit 40.6 % (42.0-52.0) L 38.6 % (42.0-52.0) L Mean Corpuscular Volume 91 FL (80-99) 91 FL (80-99) Mean Corpuscular Hemoglobin 31.8 PG (27.0-31.0) H 31.3 PG (27.0-31.0) H Mean Corpuscular Hemoglobin Concent 35.1 G/DL (32.0-36.0) 34.4 G/DL (32.0-36.0) Red Cell Distribution Width 10.6 % (11.6-14.8) L 10.9 % (11.6-14.8) L Platelet Count 178 K/UL (150-450) 153 K/UL (150-450) Mean Platelet Volume 8.6 FL (6.5-10.1) 8.6 FL (6.5-10.1) Neutrophils (%) (Auto) 85.1 % (45.0-75.0) H 84.0 % (45.0-75.0) H Lymphocytes (%) (Auto) 10.5 % (20.0-45.0) L 10.4 % (20.0-45.0) L Monocytes (%) (Auto) 4.1 % (1.0-10.0) 4.9 % (1.0-10.0) Eosinophils (%) (Auto) 0.0 % (0.0-3.0) 0.4 % (0.0-3.0) Basophils (%) (Auto) 0.2 % (0.0-2.0) 0.4 % (0.0-2.0) Urine Color [place] Urine Appearance Clear Urine pH 9 (4.5-8.0) Urine Specific [place] 1.010 (1.005-1.035) Urine Protein 1+ (NEGATIVE) H Urine Glucose (UA) Negative (NEGATIVE) Urine Ketones 2+ (NEGATIVE) H Urine Occult Blood 1+ (NEGATIVE) H Urine Nitrite Negative (NEGATIVE) Urine Bilirubin Negative (NEGATIVE) Urine Ictotest Negative Urine Urobilinogen 1 MG/DL (0.0-1.0) H Urine Leukocyte Esterase 1+ (NEGATIVE) H Urine RBC 5-10 /HPF (0 - 0) H Urine WBC 2-4 /HPF (0 - 0) Urine Squamous Epithelial Cells None /LPF (NONE/OCC) Urine Bacteria Occasional /HPF (NONE) Sodium Level 138 MMOL/L (136-145) 139 MMOL/L (136-145) Potassium Level 3.5 MMOL/L (3.5-5.1) 3.8 MMOL/L (3.5-5.1) Chloride Level 102 MMOL/L (98-107) 107 MMOL/L (98-107) Carbon Dioxide Level 28 MMOL/L (21-32) 22 MMOL/L (21-32) Anion Gap 8 mmol/L (5-15) 10 mmol/L (5-15) Blood Urea Nitrogen 16 mg/dL (7-18) 16 mg/dL (7-18) Creatinine 0.9 MG/DL (0.55-1.30) 0.9 MG/DL (0.55-1.30) Estimat Glomerular Filtration Rate > 60 mL/min (>60) > 60 mL/min (>60) Glucose Level 117 MG/DL (74-106) H 138 MG/DL (74-106) H Calcium Level 9.2 MG/DL (8.5-10.1) 8.0 MG/DL (8.5-10.1) L Total Bilirubin 1.0 MG/DL (0.2-1.0) 0.9 MG/DL (0.2-1.0) Aspartate Amino Transf (AST/SGOT) 15 U/L (15-37) 18 U/L (15-37) Alanine Aminotransferase (ALT/SGPT) 31 U/L (12-78) 26 U/L (12-78) Alkaline Phosphatase 63 U/L (46-116) 52 U/L (46-116) Total Protein 7.2 G/DL (6.4-8.2) 6.1 G/DL (6.4-8.2) L Albumin 3.7 G/DL (3.4-5.0) 2.6 G/DL (3.4-5.0) L Globulin 3.5 g/dL 3.5 g/dL Albumin/Globulin Ratio 1.1 (1.0-2.7) 0.7 (1.0-2.7) L Lipase 52 U/L (73-393) L 39 U/L (73-393) L Prothrombin Time 12.6 SEC (9.30-11.50) H Prothromb Time International Ratio 1.2 (0.9-1.1) H Activated Partial Thromboplast Time 32 SEC (23-33) 33 SEC (23-33) Amylase Level 25 U/L (25-115) Height (Feet): 6 Height (Inches): 0.00 Weight (Pounds): 185 Medications Current Medications Medications (Trade) Dose Ordered Sig/Didier Route PRN Reason Start Time Stop Time Status Last Admin Dose Admin Acetaminophen (Tylenol) 650 mg Q6H PRN ORAL Mild Pain (Pain Scale 1-3) 11/29/17 23:45 12/29/17 23:44 Al Hydroxide/Mg Hydroxide (Mylanta II) 30 ml Q6H PRN ORAL dyspepsia 11/29/17 21:00 12/29/17 20:59 Al Hydroxide/Mg Hydroxide (Mylanta) 15 ml Q6H PRN ORAL DYSPEPSIA 11/29/17 23:45 12/29/17 23:44 Dextrose (Dextrose 50%) STAT PRN IV Hypoglycemia 11/29/17 21:00 12/29/17 20:59 Dextrose/ Electrolytes 1,000 ml @ 125 mls/hr Q8H IV 11/29/17 23:42 12/29/17 23:41 11/30/17 05:40 Diphenhydramine HCl (Benadryl) 12.5 mg Q6H PRN IVP Itching/Pruritis 11/29/17 23:45 12/29/17 23:44 Heparin Sodium (Porcine) (Heparin 5000 units/ml) 5,000 units EVERY 12 HOURS SUBQ 11/30/17 09:00 12/30/17 08:59 11/30/17 08:24 Ketorolac Tromethamine (Toradol 30mg) 15 mg Q6H PRN IV For Pain 11/29/17 23:45 12/04/17 23:44 11/30/17 12:28 Morphine Sulfate (Morphine Sulfate) 4 mg Q2H PRN IVP pain 11/30/17 00:00 12/07/17 00:00 Nitroglycerin (Ntg) 0.4 mg Q5M X 3 DOSES PRN SL Prn Chest Pain 11/29/17 21:00 12/29/17 20:59 Ondansetron HCl (Zofran) 4 mg Q6H PRN IVP Nausea & Vomiting 11/29/17 23:45 12/29/17 23:44 Pantoprazole (Protonix) 40 mg DAILY IVP 11/30/17 09:00 12/30/17 08:59 11/30/17 08:23 Piperacillin Sod/ Tazobactam Sod 3.375 gm/Sodium Chloride 110 ml @ 27.5 mls/hr Q8H IVPB 11/30/17 05:00 12/07/17 04:59 11/30/17 05:41 Temazepam (Restoril) 15 mg HSPRN PRN ORAL Insomnia 11/29/17 21:00 12/06/17 20:59 11/30/17 01:49 Assessment/Plan Problem List: (1) Perforated sigmoid colon ICD Codes: K63.1 - Perforation of intestine (nontraumatic) SNOMED: 400873326 (2) HIV (human immunodeficiency virus infection) ICD Codes: B20 - Human immunodeficiency virus [HIV] disease SNOMED: 29210973 (3) Diverticulitis large intestine ICD Codes: K57.32 - Diverticulitis of large intestine without perforation or abscess without bleeding SNOMED: 9480662 (4) Post-operative nausea and vomiting ICD Codes: R11.2 - Nausea with vomiting, unspecified; Z98.890 - Other specified postprocedural states SNOMED: 4479621 Assessment/Plan NPO IV fluids IV abx ID evaluation check electrolytes symptomatic treatment dvt prophylaxis. Miki Verdugo MD November 30, 2017 13:31
--- NOTE | 2017-11-30 17:29 | Consultation ---
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 Pain described as cramping,lower/generalized and 6/10 intensity. +subjective fevers, more frequent and looser bowel movements. VIsited his PCP day of admission and noted to have abd tenderness, rebound and guarding and recommended to go to ED. In ED noted to have leukocytosis and free air and sigmoid diverticulitis on CT scan. Seen by surgery and underwent emergent laparotomy 11/29. Denies nausea, vomiting, recent abd use, melena, hematochezia Allergies: Coded Allergies: No Known Allergies (Unverified , 11/29/17) Medication History Scheduled Darunavir/Cobicistat (Prezcobix 800 mg-150 mg Tablet), 1 EACH PO DAILY, ( Reported) Dolutegravir Sodium (Tivicay), 50 MG ORAL DAILY, (Reported) Escitalopram Oxalate* (Lexapro*), 10 MG ORAL DAILY, (Reported) Ezetimibe/Simvastatin 10-10MG (Vytorin 10-10 Mg Tablet), 1 TAB ORAL DAILY, ( Reported) Rosuvastatin Calcium (Crestor), 10 MG ORAL DAILY, (Reported) Rosuvastatin Calcium* (Crestor*), 40 MG ORAL DAILY, (Reported) Rosuvastatin Calcium* (Crestor*), 40 MG ORAL QHS, (Reported) Miscellaneous Medications Melrose-3/Dha/Epa/Fish Oil (Fish Oil 1,400 Mg Softgel), 1 EACH PO, (Reported) Patient History Healthcare decision maker Resuscitation status Advanced Directive on File Patient History Narrative Pmhx: as above Shx: reviewed Fhx: non contributory Review of Systems All Other Systems: negative except mentioned in HPI Physical Exam Physical Exam Narrative General Appearance: WD/WN Lines, tubes and drains: peripheral HEENT: normocephalic, atraumatic Neck: normal alignment Respiratory/Chest: chest wall non-tender, lungs clear Cardiovascular/Chest: normal rate Abdomen: normal bowel sounds; surgical incision dressed Last 24 Hour Vital Signs Date Time Temp Pulse Resp B/P (MAP) Pulse Ox O2 Delivery O2 Flow Rate FiO2 11/30/17 16:00 89 18 120/65 95 Room Air 11/30/17 12:58 97.8 11/30/17 12:28 97.8 11/30/17 12:00 99.3 95 18 107/65 100 Room Air 99.3 11/30/17 10:48 208.0 68 22 98 11/30/17 08:00 98.1 87 18 111/60 94 Room Air 98.1 11/30/17 04:00 18 105/56 96 Nasal Cannula 3.0 11/30/17 01:30 86 20 103/53 94 Nasal Cannula 3.0 11/30/17 01:15 97 20 92/59 95 Nasal Cannula 3.0 11/30/17 01:00 100 20 91/55 92 Nasal Cannula 3.0 11/30/17 00:45 98.2 97 20 104/52 95 Nasal Cannula 3.0 98.2 11/30/17 00:35 9 20 111/57 95 Nasal Cannula 3.0 11/30/17 00:20 98.0 97 20 109/56 95 Nasal Cannula 3.0 98.0 11/30/17 00:10 97 21 111/57 96 Nasal Cannula 3.0 11/30/17 00:00 98 18 107/60 95 Nasal Cannula 3.0 11/29/17 23:52 209.8 102 22 98 11/29/17 23:50 103 26 115/60 96 Simple Mask 6.0 11/29/17 23:45 105 24 109/58 95 Simple Mask 6.0 11/29/17 23:40 98.5 108 20 114/54 97 Simple Mask 6.0 98.5 11/29/17 20:50 99.3 96 23 104/51 97 Room Air 11/29/17 20:30 99.3 96 23 104/51 97 Room Air 99.3 11/29/17 19:35 99.3 102 28 118/75 99 Room Air 99.3 11/29/17 18:00 89 17 117/67 99 Room Air Intake and Output 11/29/17 11/30/17 19:00 07:00 Intake Total 1002 ml 2035 ml Output Total 300 ml Balance 1002 ml 1735 ml Intake IV Total 1002 ml 2035 ml Output Urine Total 200 ml Estimated Blood Loss 100 ml # Voids 1 Laboratory Tests Test 11/29/17 19:40 11/30/17 09:25 Prothrombin Time 12.6 SEC (9.30-11.50) H Prothromb Time International Ratio 1.2 (0.9-1.1) H Activated Partial Thromboplast Time 32 SEC (23-33) 33 SEC (23-33) White Blood Count 9.3 K/UL (4.8-10.8) Red Blood Count 4.24 M/UL (4.70-6.10) L Hemoglobin 13.3 G/DL (14.2-18.0) L Hematocrit 38.6 % (42.0-52.0) L Mean Corpuscular Volume 91 FL (80-99) Mean Corpuscular Hemoglobin 31.3 PG (27.0-31.0) H Mean Corpuscular Hemoglobin Concent 34.4 G/DL (32.0-36.0) Red Cell Distribution Width 10.9 % (11.6-14.8) L Platelet Count 153 K/UL (150-450) Mean Platelet Volume 8.6 FL (6.5-10.1) Neutrophils (%) (Auto) 84.0 % (45.0-75.0) H Lymphocytes (%) (Auto) 10.4 % (20.0-45.0) L Monocytes (%) (Auto) 4.9 % (1.0-10.0) Eosinophils (%) (Auto) 0.4 % (0.0-3.0) Basophils (%) (Auto) 0.4 % (0.0-2.0) Sodium Level 139 MMOL/L (136-145) Potassium Level 3.8 MMOL/L (3.5-5.1) Chloride Level 107 MMOL/L (98-107) Carbon Dioxide Level 22 MMOL/L (21-32) Anion Gap 10 mmol/L (5-15) Blood Urea Nitrogen 16 mg/dL (7-18) Creatinine 0.9 MG/DL (0.55-1.30) Estimat Glomerular Filtration Rate > 60 mL/min (>60) Glucose Level 138 MG/DL (74-106) H Calcium Level 8.0 MG/DL (8.5-10.1) L Total Bilirubin 0.9 MG/DL (0.2-1.0) Aspartate Amino Transf (AST/SGOT) 18 U/L (15-37) Alanine Aminotransferase (ALT/SGPT) 26 U/L (12-78) Alkaline Phosphatase 52 U/L (46-116) Total Protein 6.1 G/DL (6.4-8.2) L Albumin 2.6 G/DL (3.4-5.0) L Globulin 3.5 g/dL Albumin/Globulin Ratio 0.7 (1.0-2.7) L Amylase Level 25 U/L (25-115) Lipase 39 U/L (73-393) L Height (Feet): 6 Height (Inches): 0.00 Weight (Pounds): 185 Medications Current Medications Medications (Trade) Dose Ordered Sig/Didier Route PRN Reason Start Time Stop Time Status Last Admin Dose Admin Acetaminophen (Tylenol) 650 mg Q6H PRN ORAL Mild Pain (Pain Scale 1-3) 11/29/17 23:45 12/29/17 23:44 Al Hydroxide/Mg Hydroxide (Mylanta II) 30 ml Q6H PRN ORAL dyspepsia 11/29/17 21:00 12/29/17 20:59 Al Hydroxide/Mg Hydroxide (Mylanta) 15 ml Q6H PRN ORAL DYSPEPSIA 11/29/17 23:45 12/29/17 23:44 Dextrose (Dextrose 50%) STAT PRN IV Hypoglycemia 11/29/17 21:00 12/29/17 20:59 Dextrose/ Electrolytes 1,000 ml @ 125 mls/hr Q8H IV 11/29/17 23:42 12/29/17 23:41 11/30/17 14:18 Diphenhydramine HCl (Benadryl) 12.5 mg Q6H PRN IVP Itching/Pruritis 11/29/17 23:45 12/29/17 23:44 Heparin Sodium (Porcine) (Heparin 5000 units/ml) 5,000 units EVERY 12 HOURS SUBQ 11/30/17 09:00 12/30/17 08:59 11/30/17 08:24 Ketorolac Tromethamine (Toradol 30mg) 15 mg Q6H PRN IV For Pain 11/29/17 23:45 12/04/17 23:44 11/30/17 12:28 Morphine Sulfate (Morphine Sulfate) 4 mg Q2H PRN IVP pain 11/30/17 00:00 12/07/17 00:00 Nitroglycerin (Ntg) 0.4 mg Q5M X 3 DOSES PRN SL Prn Chest Pain 11/29/17 21:00 12/29/17 20:59 Ondansetron HCl (Zofran) 4 mg Q6H PRN IVP Nausea & Vomiting 11/29/17 23:45 12/29/17 23:44 Pantoprazole (Protonix) 40 mg DAILY IVP 11/30/17 09:00 12/30/17 08:59 11/30/17 08:23 Piperacillin Sod/ Tazobactam Sod 3.375 gm/Sodium Chloride 110 ml @ 27.5 mls/hr Q8H IVPB 11/30/17 05:00 12/07/17 04:59 11/30/17 14:18 Temazepam (Restoril) 15 mg HSPRN PRN ORAL Insomnia 11/29/17 21:00 12/06/17 20:59 11/30/17 01:49 Assessment/Plan Assessment/Plan Abx: Zosyn 11/29- UNasyn x1 11/29 Levaquin x1 11/29 Flagyl x1 11/29 Assessment: Acute sigmoid diverticulitis w/ perforation -s/p Exploratory laparotomy, Sigmoid colectomy, Primary end-to-end anastomosis , Abdominal washout. 11/29 -OR findings: free fluid in the abdomen, some dense adhesions from the sigmoid colon in the pelvis, and an area of perforated sigmoid diverticulitis with surrounding inflammatory tissue, but no gross pus or stool. -CT abd/p: Acute sigmoid diverticulitis. No drainable abscess. Small amount of free air within the peritoneal cavity noted. Other incidental findings include reactive small bowel ileus, small left inguinal hernia, thickening of the urinary bladder wall which may be due to cystitis. Mild leukocytosis, resolved -afebrile -u/a neg HIV (per patient CD4 600s and VL UD ) on ARV for many years (>20years) -current regimen: Tivicay and Prezcobix Plan: -Switch Zosyn #2/5 to IV Ceftriaxone and PO Flagyl; upon discharge can transition to PO Metronidazole 500mg tid and Cefdinir 300mg bid -f/u cx -Monitor CBC/BMP, temperatures -Resume ARV upon discharge- if he will remain longer in the hospital then to be resumed here with his home medicine as Prezcobix not in hospital formulary. Thank you for this consultation. Will continue to follow along with you. Discussed with Dilcia Pina M.D. November 30, 2017 17:29
[2017-11-30] MEDS ORDERED: Lidocaine 1% Plain 30 ml INJ SCH (20:00)
[2017-11-30] MEDS: metroNIDAZOLE 500mg tab ORAL SCH (21:27)
[2017-12-01] VITALS: BP 140/72
[2017-12-01] MEDS: metroNIDAZOLE 500mg tab ORAL SCH ×2 (05:53→13:52)
[2017-12-01] MEDS: Ketorolac 30mg Inj IV PRN ×3 (05:58→20:44)
[2017-12-01 06:00] VITALS: BP 151/83
[2017-12-01 06:14] LABS: BASOPHILS % (AUTO) 0.3 % (0.0-2.0); EOSINOPHILS % (AUTO) 0.4 % (0.0-3.0); HEMATOCRIT 41.8 % (42.0-52.0); HEMOGLOBIN 14.2 G/DL (14.2-18.0); LYMPHOCYTES % (AUTO) 10.5 % (20.0-45.0); MEAN CORPUSCULAR VOLUME 91 FL (80-99); MONOCYTES % (AUTO) 4.8 % (1.0-10.0); NEUTROPHILS % (AUTO) 83.9 % (45.0-75.0); PLATELET COUNT 177 K/UL (150-450); RED BLOOD COUNT 4.59 M/UL (4.70-6.10); RED CELL DISTRIBUTION WIDTH 10.8 % (11.6-14.8); WHITE BLOOD COUNT 9.2 K/UL (4.8-10.8)
[2017-12-01 06:20] LABS: ALANINE AMINOTRANSFERASE 11 U/L (12-78); ALBUMIN 2.6 G/DL (3.4-5.0); ALBUMIN/GLOBULIN RATIO 0.6 (1.0-2.7); ALKALINE PHOSPHATASE 65 U/L (46-116); ANION GAP 12 mmol/L (5-15); ASPARTATE AMINO TRANSFERASE 18 U/L (15-37); BILIRUBIN,TOTAL 0.5 MG/DL (0.2-1.0); BLOOD UREA NITROGEN 11 mg/dL (7-18); CALCIUM 8.5 MG/DL (8.5-10.1); CARBON DIOXIDE 20 MMOL/L (21-32); CHLORIDE 104 MMOL/L (98-107); CREATININE 0.7 MG/DL (0.55-1.30); POTASSIUM 3.8 MMOL/L (3.5-5.1); SODIUM 136 MMOL/L (136-145)
[2017-12-01 08:00] VITALS: BP 144/84
[2017-12-01] MEDS: D5 1/2NS w/KCl 20mEq 1,000 ML IV SCH ×3 (08:00→23:52)
[2017-12-01] MEDS: Pantoprazole Inj IVP SCH (08:01)
[2017-12-01] MEDS: Heparin 5000 units/ml inj SUBQ SCH ×2 (08:02→20:45)
--- NOTE | 2017-12-01 10:33 | GI Progress Note ---
Assessment/Plan Problems: (1) Perforated sigmoid colon ICD Codes: K63.1 - Perforation of intestine (nontraumatic) SNOMED: 568820767 (2) Post-operative nausea and vomiting ICD Codes: R11.2 - Nausea with vomiting, unspecified; Z98.890 - Other specified postprocedural states SNOMED: 5111357 (3) Post-operative pain ICD Codes: G89.18 - Other acute postprocedural pain SNOMED: 578253030 Status: unchanged Status Narrative Discussed with Dr. Arellano. Assessment/Plan s/p ex lap with sigmoid resection post operative management >> fu surgical recs maintain NPO + IVFs zofran prn pain mgmt IS fu labs outpatient GI procedures The patient was seen and examined at bedside and all new and available data was reviewed in the patients chart. I agree with the above findings, impression and plan. (Patient seen earlier today. Signature stamp does not reflect patient encounter time.). - Toñito Arellano MD Subjective Subjective still has abdominal pain abdominal distention/bloating Objective Last 24 Hour Vital Signs Date Time Temp Pulse Resp B/P (MAP) Pulse Ox O2 Delivery O2 Flow Rate FiO2 12/01/17 08:00 98.7 84 18 144/84 96 Room Air 98.7 12/01/17 06:00 98.0 18 151/83 96 Room Air 98.0 12/01/17 00:00 99.5 90 18 140/72 96 Room Air 99.5 11/30/17 20:00 99.2 82 18 124/60 95 Room Air 99.2 11/30/17 16:00 99.2 89 18 120/65 95 Room Air 99.2 11/30/17 12:58 97.8 11/30/17 12:28 97.8 11/30/17 12:00 99.3 95 18 107/65 100 Room Air 99.3 11/30/17 10:48 208.0 68 22 98 Intake and Output 11/30/17 12/01/17 19:00 07:00 Intake Total 1500 ml 1360 ml Output Total 800 ml 600 ml Balance 700 ml 760 ml Intake Oral 0 ml IV Total 1500 ml 1360 ml Output Urine Total 800 ml 600 ml Laboratory Tests Test 12/01/17 05:00 White Blood Count 9.2 K/UL (4.8-10.8) Red Blood Count 4.59 M/UL (4.70-6.10) L Hemoglobin 14.2 G/DL (14.2-18.0) Hematocrit 41.8 % (42.0-52.0) L Mean Corpuscular Volume 91 FL (80-99) Mean Corpuscular Hemoglobin 30.9 PG (27.0-31.0) Mean Corpuscular Hemoglobin Concent 34.0 G/DL (32.0-36.0) Red Cell Distribution Width 10.8 % (11.6-14.8) L Platelet Count 177 K/UL (150-450) Mean Platelet Volume 8.4 FL (6.5-10.1) Neutrophils (%) (Auto) 83.9 % (45.0-75.0) H Lymphocytes (%) (Auto) 10.5 % (20.0-45.0) L Monocytes (%) (Auto) 4.8 % (1.0-10.0) Eosinophils (%) (Auto) 0.4 % (0.0-3.0) Basophils (%) (Auto) 0.3 % (0.0-2.0) Sodium Level 136 MMOL/L (136-145) Potassium Level 3.8 MMOL/L (3.5-5.1) Chloride Level 104 MMOL/L (98-107) Carbon Dioxide Level 20 MMOL/L (21-32) L Anion Gap 12 mmol/L (5-15) Blood Urea Nitrogen 11 mg/dL (7-18) Creatinine 0.7 MG/DL (0.55-1.30) Estimat Glomerular Filtration Rate > 60 mL/min (>60) Glucose Level 175 MG/DL (74-106) H Calcium Level 8.5 MG/DL (8.5-10.1) Total Bilirubin 0.5 MG/DL (0.2-1.0) Aspartate Amino Transf (AST/SGOT) 18 U/L (15-37) Alanine Aminotransferase (ALT/SGPT) 11 U/L (12-78) L Alkaline Phosphatase 65 U/L (46-116) Total Protein 6.7 G/DL (6.4-8.2) Albumin 2.6 G/DL (3.4-5.0) L Globulin 4.1 g/dL Albumin/Globulin Ratio 0.6 (1.0-2.7) L Height (Feet): 6 Height (Inches): 0.00 Weight (Pounds): 185 General Appearance: WD/WN, no apparent distress, alert Cardiovascular: normal rate Respiratory/Chest: normal breath sounds, no respiratory distress Abdominal Exam: normal bowel sounds, non tender, soft, hypoactive bowel sounds , incision site Extremities: normal range of motion, non-tender Elba Oneill NP December 01, 2017 10:33
[2017-12-01 12:00] VITALS: BP 137/86
--- NOTE | 2017-12-01 12:47 | Pulmonology Progress Note ---
Assessment/Plan Problems: (1) Perforated sigmoid colon (2) HIV (human immunodeficiency virus infection) (3) Diverticulitis large intestine (4) Post-operative nausea and vomiting Assessment/Plan walking in the hallway doing better no new complains ID f/u sugical f/u keep npo] continue iv fluids check electrolytes. Subjective ROS Limited/Unobtainable: No Constitutional: Reports: no symptoms HEENT: Repors: no symptoms Respiratory: Reports: no symptoms Allergies: Coded Allergies: No Known Allergies (Unverified , 11/29/17) Objective Last 24 Hour Vital Signs Date Time Temp Pulse Resp B/P (MAP) Pulse Ox O2 Delivery O2 Flow Rate FiO2 12/01/17 08:00 98.7 84 18 144/84 96 Room Air 98.7 12/01/17 06:00 98.0 18 151/83 96 Room Air 98.0 12/01/17 00:00 99.5 90 18 140/72 96 Room Air 99.5 11/30/17 20:00 99.2 82 18 124/60 95 Room Air 99.2 11/30/17 16:00 99.2 89 18 120/65 95 Room Air 99.2 11/30/17 12:58 97.8 Intake and Output 11/30/17 12/01/17 19:00 07:00 Intake Total 1500 ml 1360 ml Output Total 800 ml 600 ml Balance 700 ml 760 ml Intake Oral 0 ml IV Total 1500 ml 1360 ml Output Urine Total 800 ml 600 ml General Appearance: WD/WN HEENT: normocephalic, atraumatic Respiratory/Chest: chest wall non-tender, lungs clear, normal breath sounds Cardiovascular: normal peripheral pulses, normal rate Abdomen: normal bowel sounds, soft, non tender Genitourinary: normal external genitalia Extremities: no cyanosis Neurologic/Psychiatric: permastone applicator II-XII grossly normal Laboratory Tests 12/01/17 05:00: White Blood Count 9.2, Red Blood Count 4.59L, Hemoglobin 14.2, Hematocrit 41.8L , Mean Corpuscular Volume 91, Mean Corpuscular Hemoglobin 30.9, Mean Corpuscular Hemoglobin Concent 34.0, Red Cell Distribution Width 10.8L, Platelet Count 177, Mean Platelet Volume 8.4, Neutrophils (%) (Auto) 83.9H, Lymphocytes (%) (Auto) 10.5L, Monocytes (%) (Auto) 4.8, Eosinophils (%) (Auto) 0.4, Basophils (%) (Auto) 0.3, Sodium Level 136, Potassium Level 3.8, Chloride Level 104, Carbon Dioxide Level 20L, Anion Gap 12, Blood Urea Nitrogen 11, Creatinine 0.7, Estimat Glomerular Filtration Rate > 60, Glucose Level 175H, Calcium Level 8.5, Total Bilirubin 0.5, Aspartate Amino Transf (AST/SGOT) 18, Alanine Aminotransferase (ALT/SGPT) 11L, Alkaline Phosphatase 65, Total Protein 6.7, Albumin 2.6L, Globulin 4.1, Albumin/Globulin Ratio 0.6L Current Medications Medications (Trade) Dose Ordered Sig/Didier Route PRN Reason Start Time Stop Time Status Last Admin Dose Admin Acetaminophen (Tylenol) 650 mg Q6H PRN ORAL Mild Pain (Pain Scale 1-3) 11/29/17 23:45 12/29/17 23:44 Al Hydroxide/Mg Hydroxide (Mylanta II) 30 ml Q6H PRN ORAL dyspepsia 11/29/17 21:00 12/29/17 20:59 Al Hydroxide/Mg Hydroxide (Mylanta) 15 ml Q6H PRN ORAL DYSPEPSIA 11/29/17 23:45 12/29/17 23:44 Ceftriaxone Sodium (Rocephin) 1 gm DAILY@2000 IM 11/30/17 20:00 12/07/17 19:59 11/30/17 21:27 Dextrose (Dextrose 50%) STAT PRN IV Hypoglycemia 11/29/17 21:00 12/29/17 20:59 Dextrose/ Electrolytes 1,000 ml @ 125 mls/hr Q8H IV 11/29/17 23:42 12/29/17 23:41 12/01/17 08:00 Diphenhydramine HCl (Benadryl) 12.5 mg Q6H PRN IVP Itching/Pruritis 11/29/17 23:45 12/29/17 23:44 Heparin Sodium (Porcine) (Heparin 5000 units/ml) 5,000 units EVERY 12 HOURS SUBQ 11/30/17 09:00 12/30/17 08:59 12/01/17 08:02 Ketorolac Tromethamine (Toradol 30mg) 15 mg Q6H PRN IV For Pain 11/29/17 23:45 12/04/17 23:44 12/01/17 05:58 Lidocaine (Xylocaine 1% MPF 5ml) 3.6 ml DAILY@1999 INJ 12/01/17 20:00 12/31/17 19:59 Metronidazole (Flagyl) 500 mg Q8HR ORAL 11/30/17 22:00 12/07/17 21:59 12/01/17 05:53 Morphine Sulfate (Morphine Sulfate) 4 mg Q2H PRN IVP pain 11/30/17 00:00 12/07/17 00:00 Nitroglycerin (Ntg) 0.4 mg Q5M X 3 DOSES PRN SL Prn Chest Pain 11/29/17 21:00 12/29/17 20:59 Ondansetron HCl (Zofran) 4 mg Q6H PRN IVP Nausea & Vomiting 11/29/17 23:45 12/29/17 23:44 Pantoprazole (Protonix) 40 mg DAILY IVP 11/30/17 09:00 12/30/17 08:59 12/01/17 08:01 Temazepam (Restoril) 15 mg HSPRN PRN ORAL Insomnia 11/29/17 21:00 12/06/17 20:59 11/30/17 21:31 Miki Verdugo MD December 01, 2017 12:47
[2017-12-01 16:00] VITALS: BP 132/82
--- NOTE | 2017-12-01 17:13 | Infectious Diseases Prog Note ---
Assessment/Plan Assessment/Plan Assessment: Acute sigmoid diverticulitis w/ perforation -s/p Exploratory laparotomy, Sigmoid colectomy, Primary end-to-end anastomosis , Abdominal washout. 11/29 -OR findings: free fluid in the abdomen, some dense adhesions from the sigmoid colon in the pelvis, and an area of perforated sigmoid diverticulitis with surrounding inflammatory tissue, but no gross pus or stool. -CT abd/p: Acute sigmoid diverticulitis. No drainable abscess. Small amount of free air within the peritoneal cavity noted. Other incidental findings include reactive small bowel ileus, small left inguinal hernia, thickening of the urinary bladder wall which may be due to cystitis. Mild leukocytosis, resolved -afebrile -u/a neg HIV (per patient CD4 600s and VL UD ) on ARV for many years (>20years) -current regimen: Tivicay and Prezcobix Plan: -Continue IV Ceftriaxone and PO Flagyl abx d#3/ ; upon discharge can transition to PO Metronidazole 500mg tid and Cefdinir 300mg bid -11/30 SP Zosyn #2 -11/29 SP Unasyn x1, Levaquin #1, Flagyl x1 -f/u cx -Monitor CBC/BMP, temperatures -Resume ARV upon discharge- if he will remain longer in the hospital then to be resumed here with his home medicine as Prezcobix not in hospital formulary. Thank you for this consultation. Will continue to follow along with you. Discussed with RN. Subjective Allergies: Coded Allergies: No Known Allergies (Unverified , 11/29/17) Subjective afebrile no leukocytosis Objective Vital Signs Last 24 Hour Vital Signs Date Time Temp Pulse Resp B/P (MAP) Pulse Ox O2 Delivery O2 Flow Rate FiO2 12/01/17 14:23 97.8 12/01/17 12:00 97.8 91 18 137/86 98 Room Air 97.8 12/01/17 08:00 98.7 84 18 144/84 96 Room Air 98.7 12/01/17 06:00 98.0 18 151/83 96 Room Air 98.0 12/01/17 00:00 99.5 90 18 140/72 96 Room Air 99.5 11/30/17 20:00 99.2 82 18 124/60 95 Room Air 99.2 Height (Feet): 6 Height (Inches): 0.00 Weight (Pounds): 185 Objective General Appearance: WD/WN Lines, tubes and drains: peripheral HEENT: normocephalic, atraumatic Neck: normal alignment Respiratory/Chest: chest wall non-tender, lungs clear Cardiovascular/Chest: normal rate Abdomen: normal bowel sounds; surgical incision dressed Laboratory Tests Test 12/01/17 05:00 White Blood Count 9.2 K/UL (4.8-10.8) Red Blood Count 4.59 M/UL (4.70-6.10) L Hemoglobin 14.2 G/DL (14.2-18.0) Hematocrit 41.8 % (42.0-52.0) L Mean Corpuscular Volume 91 FL (80-99) Mean Corpuscular Hemoglobin 30.9 PG (27.0-31.0) Mean Corpuscular Hemoglobin Concent 34.0 G/DL (32.0-36.0) Red Cell Distribution Width 10.8 % (11.6-14.8) L Platelet Count 177 K/UL (150-450) Mean Platelet Volume 8.4 FL (6.5-10.1) Neutrophils (%) (Auto) 83.9 % (45.0-75.0) H Lymphocytes (%) (Auto) 10.5 % (20.0-45.0) L Monocytes (%) (Auto) 4.8 % (1.0-10.0) Eosinophils (%) (Auto) 0.4 % (0.0-3.0) Basophils (%) (Auto) 0.3 % (0.0-2.0) Sodium Level 136 MMOL/L (136-145) Potassium Level 3.8 MMOL/L (3.5-5.1) Chloride Level 104 MMOL/L (98-107) Carbon Dioxide Level 20 MMOL/L (21-32) L Anion Gap 12 mmol/L (5-15) Blood Urea Nitrogen 11 mg/dL (7-18) Creatinine 0.7 MG/DL (0.55-1.30) Estimat Glomerular Filtration Rate > 60 mL/min (>60) Glucose Level 175 MG/DL (74-106) H Calcium Level 8.5 MG/DL (8.5-10.1) Total Bilirubin 0.5 MG/DL (0.2-1.0) Aspartate Amino Transf (AST/SGOT) 18 U/L (15-37) Alanine Aminotransferase (ALT/SGPT) 11 U/L (12-78) L Alkaline Phosphatase 65 U/L (46-116) Total Protein 6.7 G/DL (6.4-8.2) Albumin 2.6 G/DL (3.4-5.0) L Globulin 4.1 g/dL Albumin/Globulin Ratio 0.6 (1.0-2.7) L Current Medications Medications (Trade) Dose Ordered Sig/Didier Route PRN Reason Start Time Stop Time Status Last Admin Dose Admin Acetaminophen (Tylenol) 650 mg Q6H PRN ORAL Mild Pain (Pain Scale 1-3) 11/29/17 23:45 12/29/17 23:44 Al Hydroxide/Mg Hydroxide (Mylanta II) 30 ml Q6H PRN ORAL dyspepsia 11/29/17 21:00 12/29/17 20:59 Al Hydroxide/Mg Hydroxide (Mylanta) 15 ml Q6H PRN ORAL DYSPEPSIA 11/29/17 23:45 12/29/17 23:44 Ceftriaxone Sodium (Rocephin) 1 gm DAILY@2000 IM 11/30/17 20:00 12/07/17 19:59 11/30/17 21:27 Dextrose (Dextrose 50%) STAT PRN IV Hypoglycemia 11/29/17 21:00 12/29/17 20:59 Dextrose/ Electrolytes 1,000 ml @ 125 mls/hr Q8H IV 11/29/17 23:42 12/29/17 23:41 12/01/17 16:41 Diphenhydramine HCl (Benadryl) 12.5 mg Q6H PRN IVP Itching/Pruritis 11/29/17 23:45 12/29/17 23:44 Heparin Sodium (Porcine) (Heparin 5000 units/ml) 5,000 units EVERY 12 HOURS SUBQ 11/30/17 09:00 12/30/17 08:59 12/01/17 08:02 Ketorolac Tromethamine (Toradol 30mg) 15 mg Q6H PRN IV For Pain 11/29/17 23:45 12/04/17 23:44 12/01/17 13:53 Lidocaine (Xylocaine 1% MPF 5ml) 3.6 ml DAILY@2000 INJ 12/01/17 20:00 12/31/17 19:59 Metronidazole (Flagyl) 500 mg Q8HR ORAL 11/30/17 22:00 12/07/17 21:59 12/01/17 13:52 Morphine Sulfate (Morphine Sulfate) 4 mg Q2H PRN IVP pain 11/30/17 00:00 12/07/17 00:00 Nitroglycerin (Ntg) 0.4 mg Q5M X 3 DOSES PRN SL Prn Chest Pain 11/29/17 21:00 12/29/17 20:59 Ondansetron HCl (Zofran) 4 mg Q6H PRN IVP Nausea & Vomiting 11/29/17 23:45 12/29/17 23:44 Pantoprazole (Protonix) 40 mg DAILY IVP 11/30/17 09:00 12/30/17 08:59 12/01/17 08:01 Temazepam (Restoril) 15 mg HSPRN PRN ORAL Insomnia 11/29/17 21:00 12/06/17 20:59 11/30/17 21:31 Dilcia Rodriguez M.D. December 01, 2017 17:13
[2017-12-01 20:00] VITALS: BP 162/94
[2017-12-01] MEDS ORDERED: Lidocaine 1% MPF 10mg/ml 5ml INJ SCH (20:00)
[2017-12-01] MEDS: cefTRIAXone 1gm/D5W 55ml IVPB SCH ×2 (20:43)
[2017-12-01] MEDS: Mylanta II UD 30ml ORAL PRN (21:10)
[2017-12-01] MEDS ORDERED: metroNIDAZOLE 500mg tab ORAL SCH ×2 (22:00→22:15)
--- NOTE | 2017-12-01 23:12 | General Progress Note ---
Progress Note Progress Note Surgery: late entry for patient seen at 10:00am. doing well. pain controlled but feels abdominal bloating. no n/v/f/c. no flatus. ambulatory afebrile, HD stable abd soft, distended, tympanic, llq tender on deep palpation, wound c/d/i labs okay -d/c berry -keep npo -iv fluids -iv abx -await return of bowel function Quan Fallon December 01, 2017 23:12
[2017-12-02] VITALS (7 sets, daily range): BP systolic 128–162; BP diastolic 71–94
[2017-12-02] MEDS: Morphine Sulfate 4mg/ml Inj IVP PRN ×4 (01:42→20:42)
[2017-12-02] MEDS: Mylanta II UD 30ml ORAL PRN (03:17)
[2017-12-02 04:51] LABS: BASOPHILS % (AUTO) 0.5 % (0.0-2.0); EOSINOPHILS % (AUTO) 1.3 % (0.0-3.0); HEMATOCRIT 40.6 % (42.0-52.0); HEMOGLOBIN 14.6 G/DL (14.2-18.0); LYMPHOCYTES % (AUTO) 16.9 % (20.0-45.0); MEAN CORPUSCULAR VOLUME 90 FL (80-99); MONOCYTES % (AUTO) 8.1 % (1.0-10.0); NEUTROPHILS % (AUTO) 73.2 % (45.0-75.0); PLATELET COUNT 205 K/UL (150-450); RED BLOOD COUNT 4.53 M/UL (4.70-6.10); RED CELL DISTRIBUTION WIDTH 10.4 % (11.6-14.8); WHITE BLOOD COUNT 6.8 K/UL (4.8-10.8)
[2017-12-02 05:17] LABS: ALANINE AMINOTRANSFERASE 24 U/L (12-78); ALBUMIN 2.3 G/DL (3.4-5.0); ALBUMIN/GLOBULIN RATIO 0.6 (1.0-2.7); ALKALINE PHOSPHATASE 63 U/L (46-116); ANION GAP 11 mmol/L (5-15); ASPARTATE AMINO TRANSFERASE 16 U/L (15-37); BILIRUBIN,TOTAL 0.4 MG/DL (0.2-1.0); BLOOD UREA NITROGEN 15 mg/dL (7-18); CALCIUM 8.2 MG/DL (8.5-10.1); CARBON DIOXIDE 22 MMOL/L (21-32); CHLORIDE 104 MMOL/L (98-107); CREATININE 0.7 MG/DL (0.55-1.30); POTASSIUM 3.9 MMOL/L (3.5-5.1); SODIUM 137 MMOL/L (136-145)
[2017-12-02 05:23] LABS: PHOSPHORUS 2.9 MG/DL (2.5-4.9)
[2017-12-02] MEDS: metroNIDAZOLE 500mg tab ORAL SCH ×3 (05:57→22:16)
[2017-12-02] MEDS: Pantoprazole Inj IVP SCH (08:18)
[2017-12-02] MEDS: D5 1/2NS w/KCl 20mEq 1,000 ML IV SCH ×3 (08:19→17:14)
--- NOTE | 2017-12-02 08:42 | General Progress Note ---
Progress Note Progress Note Surgery: doing well. no acute events overnight. no n/v/f/c. berry removed and voided since. afebrile, HD stable, exam stable. abd soft, nt, distended, tympanic, +BS, wound c/d/i. -trial clear liquids -decrease IV fluids -AM labs -ambulate and out of bed -incentive spirometry -cont IV abx for now -Not ready to resume home meds. Quan Fallon December 02, 2017 08:42
[2017-12-02] MEDS ORDERED: PREZCOBIX ORAL SCH (09:00)
[2017-12-02] MEDS ORDERED: Heparin 5000 units/ml inj SUBQ SCH (09:00)
--- NOTE | 2017-12-02 12:55 | Infectious Diseases Prog Note ---
Assessment/Plan Assessment/Plan Assessment: Acute sigmoid diverticulitis w/ perforation -s/p Exploratory laparotomy, Sigmoid colectomy, Primary end-to-end anastomosis , Abdominal washout. 11/29 -OR findings: free fluid in the abdomen, some dense adhesions from the sigmoid colon in the pelvis, and an area of perforated sigmoid diverticulitis with surrounding inflammatory tissue, but no gross pus or stool. -CT abd/p: Acute sigmoid diverticulitis. No drainable abscess. Small amount of free air within the peritoneal cavity noted. Other incidental findings include reactive small bowel ileus, small left inguinal hernia, thickening of the urinary bladder wall which may be due to cystitis. Mild leukocytosis, resolved -afebrile -u/a neg HIV (per patient CD4 600s and VL UD ) on ARV for many years (>20years) -current regimen: Tivicay and Prezcobix Plan: -Continue IV Ceftriaxone and PO Flagyl abx d# 4 /5 ; upon discharge can transition to PO Metronidazole 500mg tid and Cefdinir 300mg bid -11/30 SP Zosyn #2 -11/29 SP Unasyn x1, Levaquin #1, Flagyl x1 -f/u cx -Monitor CBC/BMP, temperatures -Resume ARV upon discharge- if he will remain longer in the hospital then to be resumed here with his home medicine as Prezcobix not in hospital formulary. Subjective Allergies: Coded Allergies: No Known Allergies (Unverified , 11/29/17) Subjective started po feeding Afebrile Objective Vital Signs Last 24 Hour Vital Signs Date Time Temp Pulse Resp B/P (MAP) Pulse Ox O2 Delivery O2 Flow Rate FiO2 12/02/17 12:00 97.9 85 19 134/78 96 Room Air 97.9 12/02/17 08:00 98.2 84 19 134/71 96 Room Air 98.2 12/02/17 04:00 97.9 85 18 157/94 96 Room Air 97.9 12/02/17 02:00 89 139/89 12/02/17 00:00 98.2 85 16 162/90 96 Room Air 98.2 12/01/17 20:00 98.1 88 18 162/94 96 Room Air 98.1 12/01/17 16:00 98.2 88 18 132/82 98 Room Air 98.2 12/01/17 14:23 97.8 Height (Feet): 6 Height (Inches): 0.00 Weight (Pounds): 185 HEENT: anicteric Respiratory/Chest: no respiratory distress Cardiovascular: regular rhythm Abdomen: no organomegaly Microbiology Date/Time Source Procedure Growth Status 11/29/17 21:00 Nasal Nares MRSA Culture - Final NO METHICILLIN RESISTANT STAPH AUREUS... Complete 11/29/17 21:00 Rectum VRE Culture - Final NO VANCOMYCIN RESISTANT ENTEROCOCCUS ... Complete Laboratory Tests Test 12/02/17 04:35 White Blood Count 6.8 K/UL (4.8-10.8) Red Blood Count 4.53 M/UL (4.70-6.10) L Hemoglobin 14.6 G/DL (14.2-18.0) Hematocrit 40.6 % (42.0-52.0) L Mean Corpuscular Volume 90 FL (80-99) Mean Corpuscular Hemoglobin 32.3 PG (27.0-31.0) H Mean Corpuscular Hemoglobin Concent 36.0 G/DL (32.0-36.0) Red Cell Distribution Width 10.4 % (11.6-14.8) L Platelet Count 205 K/UL (150-450) Mean Platelet Volume 8.2 FL (6.5-10.1) Neutrophils (%) (Auto) 73.2 % (45.0-75.0) Lymphocytes (%) (Auto) 16.9 % (20.0-45.0) L Monocytes (%) (Auto) 8.1 % (1.0-10.0) Eosinophils (%) (Auto) 1.3 % (0.0-3.0) Basophils (%) (Auto) 0.5 % (0.0-2.0) Sodium Level 137 MMOL/L (136-145) Potassium Level 3.9 MMOL/L (3.5-5.1) Chloride Level 104 MMOL/L (98-107) Carbon Dioxide Level 22 MMOL/L (21-32) Anion Gap 11 mmol/L (5-15) Blood Urea Nitrogen 15 mg/dL (7-18) Creatinine 0.7 MG/DL (0.55-1.30) Estimat Glomerular Filtration Rate > 60 mL/min (>60) Glucose Level 170 MG/DL (74-106) H Calcium Level 8.2 MG/DL (8.5-10.1) L Phosphorus Level 2.9 MG/DL (2.5-4.9) Magnesium Level 1.9 MG/DL (1.8-2.4) Total Bilirubin 0.4 MG/DL (0.2-1.0) Aspartate Amino Transf (AST/SGOT) 16 U/L (15-37) Alanine Aminotransferase (ALT/SGPT) 24 U/L (12-78) Alkaline Phosphatase 63 U/L (46-116) Total Protein 6.2 G/DL (6.4-8.2) L Albumin 2.3 G/DL (3.4-5.0) L Globulin 3.9 g/dL Albumin/Globulin Ratio 0.6 (1.0-2.7) L Current Medications Medications (Trade) Dose Ordered Sig/Didier Route PRN Reason Start Time Stop Time Status Last Admin Dose Admin Acetaminophen (Tylenol) 650 mg Q6H PRN ORAL Mild Pain (Pain Scale 1-3) 11/29/17 23:45 12/29/17 23:44 Al Hydroxide/Mg Hydroxide (Mylanta II) 30 ml Q6H PRN ORAL dyspepsia 11/29/17 21:00 12/29/17 20:59 12/02/17 03:17 Al Hydroxide/Mg Hydroxide (Mylanta) 15 ml Q6H PRN ORAL DYSPEPSIA 11/29/17 23:45 12/29/17 23:44 Ceftriaxone Sodium 1 gm/ Dextrose 55 ml @ 110 mls/hr Q24H IVPB 12/01/17 20:00 12/08/17 19:59 12/01/17 20:43 Dextrose (Dextrose 50%) STAT PRN IV Hypoglycemia 11/29/17 21:00 12/29/17 20:59 Dextrose/ Electrolytes 1,000 ml @ 100 mls/hr Q10H IV 12/02/17 10:00 01/01/18 09:59 12/02/17 09:16 Diphenhydramine HCl (Benadryl) 12.5 mg Q6H PRN IVP Itching/Pruritis 11/29/17 23:45 12/29/17 23:44 Heparin Sodium (Porcine) (Heparin 5000 units/ml) 5,000 units EVERY 12 HOURS SUBQ 12/02/17 09:00 01/01/18 08:59 12/02/17 09:21 Ketorolac Tromethamine (Toradol 30mg) 15 mg Q6H PRN IV For Pain 11/29/17 23:45 12/04/17 23:44 12/01/17 20:44 Metronidazole (Flagyl) 500 mg Q8HR ORAL 12/02/17 06:00 12/09/17 05:59 12/02/17 05:57 Morphine Sulfate (Morphine Sulfate) 4 mg Q2H PRN IVP pain 11/30/17 00:00 12/07/17 00:00 12/02/17 08:19 Nitroglycerin (Ntg) 0.4 mg Q5M X 3 DOSES PRN SL Prn Chest Pain 11/29/17 21:00 12/29/17 20:59 Ondansetron HCl (Zofran) 4 mg Q6H PRN IVP Nausea & Vomiting 11/29/17 23:45 12/29/17 23:44 Pantoprazole (Protonix) 40 mg DAILY IVP 11/30/17 09:00 12/30/17 08:59 12/02/17 08:18 Temazepam (Restoril) 15 mg HSPRN PRN ORAL Insomnia 11/29/17 21:00 12/06/17 20:59 12/01/17 21:41 Finn Malin MD December 02, 2017 12:55
[2017-12-02] MEDS: cefTRIAXone 1gm/D5W 55ml IVPB SCH ×2 (20:19)
[2017-12-02] MEDS: Heparin 5000 units/ml inj SUBQ SCH (20:21)
--- NOTE | 2017-12-02 22:05 | Pulmonology Progress Note ---
Assessment/Plan Problems: (1) Perforated sigmoid colon (2) HIV (human immunodeficiency virus infection) (3) Diverticulitis large intestine (4) Post-operative nausea and vomiting Assessment/Plan walking in the hallway doing better no new complains ID f/u surgical f/u continue iv fluids advance diet Subjective ROS Limited/Unobtainable: No Interval Events: doing better Allergies: Coded Allergies: No Known Allergies (Unverified , 11/29/17) Objective Last 24 Hour Vital Signs Date Time Temp Pulse Resp B/P (MAP) Pulse Ox O2 Delivery O2 Flow Rate FiO2 12/02/17 20:50 99.0 82 19 128/83 96 99.0 12/02/17 16:00 98.2 84 19 139/83 98 Room Air 98.2 12/02/17 12:00 97.9 85 19 134/78 96 Room Air 97.9 12/02/17 08:00 98.2 84 19 134/71 96 Room Air 98.2 12/02/17 04:00 97.9 85 18 157/94 96 Room Air 97.9 12/02/17 02:00 89 139/89 12/02/17 00:00 98.2 85 16 162/90 96 Room Air 98.2 Intake and Output 12/01/17 12/02/17 19:00 07:00 Intake Total 1125 ml 1375 ml Output Total 250 ml 350 ml Balance 875 ml 1025 ml IV Total 1125 ml 1375 ml Output Urine Total 250 ml 350 ml General Appearance: WD/WN HEENT: normocephalic, atraumatic Respiratory/Chest: chest wall non-tender, lungs clear Cardiovascular: normal peripheral pulses, normal rate Abdomen: normal bowel sounds, soft, non tender Genitourinary: normal external genitalia Extremities: no cyanosis, no clubbing Neurologic/Psychiatric: snuff drier II-XII grossly normal, normal mood/affect Laboratory Tests 12/02/17 04:35: White Blood Count 6.8, Red Blood Count 4.53L, Hemoglobin 14.6, Hematocrit 40.6L , Mean Corpuscular Volume 90, Mean Corpuscular Hemoglobin 32.3H, Mean Corpuscular Hemoglobin Concent 36.0, Red Cell Distribution Width 10.4L, Platelet Count 205, Mean Platelet Volume 8.2, Neutrophils (%) (Auto) 73.2, Lymphocytes (%) (Auto) 16.9L, Monocytes (%) (Auto) 8.1, Eosinophils (%) (Auto) 1.3, Basophils (%) (Auto) 0.5, Sodium Level 137, Potassium Level 3.9, Chloride Level 104, Carbon Dioxide Level 22, Anion Gap 11, Blood Urea Nitrogen 15, Creatinine 0.7, Estimat Glomerular Filtration Rate > 60, Glucose Level 170H, Calcium Level 8.2L, Phosphorus Level 2.9, Magnesium Level 1.9, Total Bilirubin 0.4, Aspartate Amino Transf (AST/SGOT) 16, Alanine Aminotransferase (ALT/SGPT) 24, Alkaline Phosphatase 63, Total Protein 6.2L, Albumin 2.3L, Globulin 3.9, Albumin/Globulin Ratio 0.6L Current Medications Medications (Trade) Dose Ordered Sig/Didier Route PRN Reason Start Time Stop Time Status Last Admin Dose Admin Acetaminophen (Tylenol) 650 mg Q6H PRN ORAL Mild Pain (Pain Scale 1-3) 11/29/17 23:45 12/29/17 23:44 Al Hydroxide/Mg Hydroxide (Mylanta II) 30 ml Q6H PRN ORAL dyspepsia 11/29/17 21:00 12/29/17 20:59 12/02/17 03:17 Al Hydroxide/Mg Hydroxide (Mylanta) 15 ml Q6H PRN ORAL DYSPEPSIA 11/29/17 23:45 12/29/17 23:44 Ceftriaxone Sodium 1 gm/ Dextrose 55 ml @ 110 mls/hr Q24H IVPB 12/01/17 20:00 12/08/17 19:59 12/02/17 20:19 Dextrose (Dextrose 50%) STAT PRN IV Hypoglycemia 11/29/17 21:00 12/29/17 20:59 Dextrose/ Electrolytes 1,000 ml @ 100 mls/hr Q10H IV 12/02/17 10:00 01/01/18 09:59 12/02/17 17:14 Diphenhydramine HCl (Benadryl) 12.5 mg Q6H PRN IVP Itching/Pruritis 11/29/17 23:45 12/29/17 23:44 Heparin Sodium (Porcine) (Heparin 5000 units/ml) 5,000 units EVERY 12 HOURS SUBQ 12/02/17 21:00 01/01/18 20:59 12/02/17 20:21 Ketorolac Tromethamine (Toradol 30mg) 15 mg Q6H PRN IV For Pain 11/29/17 23:45 12/04/17 23:44 12/01/17 20:44 Metronidazole (Flagyl) 500 mg Q8HR ORAL 12/02/17 22:00 12/09/17 21:59 Morphine Sulfate (Morphine Sulfate) 4 mg Q2H PRN IVP pain 11/30/17 00:00 12/07/17 00:00 12/02/17 20:42 Nitroglycerin (Ntg) 0.4 mg Q5M X 3 DOSES PRN SL Prn Chest Pain 11/29/17 21:00 12/29/17 20:59 Ondansetron HCl (Zofran) 4 mg Q6H PRN IVP Nausea & Vomiting 11/29/17 23:45 12/29/17 23:44 Pantoprazole (Protonix) 40 mg DAILY IVP 12/03/17 09:00 12/30/17 08:59 Temazepam (Restoril) 15 mg HSPRN PRN ORAL Insomnia 11/29/17 21:00 12/06/17 20:59 12/01/17 21:41 Miki Verdugo MD December 02, 2017 22:05
[2017-12-03] VITALS: BP 122/78
[2017-12-03 04:55] VITALS: BP 143/91
[2017-12-03] MEDS: D5 1/2NS w/KCl 20mEq 1,000 ML IV SCH ×3 (05:14→20:20)
[2017-12-03] MEDS: metroNIDAZOLE 500mg tab ORAL SCH ×3 (05:49→22:14)
[2017-12-03 08:00] VITALS: BP 136/86
[2017-12-03] MEDS: Pantoprazole Inj IVP SCH (08:36)
[2017-12-03] MEDS: Heparin 5000 units/ml inj SUBQ SCH ×2 (08:38→20:21)
[2017-12-03] MEDS: Morphine Sulfate 4mg/ml Inj IVP PRN ×2 (08:46→19:56)
[2017-12-03 09:51] LABS: ANION GAP 10 mmol/L (5-15); BLOOD UREA NITROGEN 10 mg/dL (7-18); CALCIUM 8.8 MG/DL (8.5-10.1); CARBON DIOXIDE 23 MMOL/L (21-32); CHLORIDE 103 MMOL/L (98-107); CREATININE 0.7 MG/DL (0.55-1.30); POTASSIUM 3.7 MMOL/L (3.5-5.1); SODIUM 136 MMOL/L (136-145)
--- NOTE | 2017-12-03 11:16 | General Progress Note ---
Assessment/Plan Assessment/Plan Physical Exam General Appearance: WD/WN Lines, tubes and drains: peripheral HEENT: normocephalic, atraumatic Neck: normal alignment Respiratory/Chest: chest wall non-tender, lungs clear Breasts: no masses Cardiovascular/Chest: normal rate Abdomen: decreased bowel sounds, no rebound tenderness Genitourinary/Rectal: normal genital exam Assessment/Plan Problem List: (1) Perforated sigmoid colon ICD Codes: K63.1 - Perforation of intestine (nontraumatic) SNOMED: 683297995 (2) HIV (human immunodeficiency virus infection) ICD Codes: B20 - Human immunodeficiency virus [HIV] disease SNOMED: 84312860 (3) Diverticulitis large intestine ICD Codes: K57.32 - Diverticulitis of large intestine without perforation or abscess without bleeding SNOMED: 6819696 (4) Post-operative nausea and vomiting ICD Codes: R11.2 - Nausea with vomiting, unspecified; Z98.890 - Other specified postprocedural states SNOMED: 3043721 Subjective Allergies: Coded Allergies: No Known Allergies (Unverified , 11/29/17) Objective Last 24 Hour Vital Signs Date Time Temp Pulse Resp B/P (MAP) Pulse Ox O2 Delivery O2 Flow Rate FiO2 12/03/17 09:16 98.0 12/03/17 08:00 98.0 85 20 136/86 96 98.0 12/03/17 04:55 99.0 79 17 143/91 95 99.0 12/03/17 00:00 98.8 79 20 122/78 96 98.8 12/02/17 20:50 99.0 82 19 128/83 96 99.0 12/02/17 16:00 98.2 84 19 139/83 98 Room Air 98.2 12/02/17 12:00 97.9 85 19 134/78 96 Room Air 97.9 Intake and Output 12/02/17 12/03/17 19:00 07:00 Intake Total 1320 ml 1260 ml Output Total 400 ml 900 ml Balance 920 ml 360 ml Intake Oral 420 ml 360 ml IV Total 900 ml 900 ml Output Urine Total 400 ml 900 ml # Voids 3 Laboratory Tests 12/03/17 07:00: Sodium Level 136, Potassium Level 3.7, Chloride Level 103, Carbon Dioxide Level 23, Anion Gap 10, Blood Urea Nitrogen 10, Creatinine 0.7, Estimat Glomerular Filtration Rate > 60, Glucose Level 127H, Calcium Level 8.8 Height (Feet): 6 Height (Inches): 0.00 Weight (Pounds): 185 Lachelle Malcolm MD December 03, 2017 11:16
[2017-12-03 12:00] VITALS: BP 146/59
--- NOTE | 2017-12-03 13:27 | General Progress Note ---
Progress Note Progress Note Surgery: doing better. no n/v/f/c. comfortable. passing flatus. ambulatory. tolerating clears afebrile, HD stable, labs okay exam improved. abd less distended. soft, nt, bs+, incisions c/d/i -clear liquids -decrease iv fluid -ambulate and out of bed -incentive spirometry Quan Fallon December 03, 2017 13:27
[2017-12-03 16:00] VITALS: BP 137/78
[2017-12-03] MEDS: cefTRIAXone 1gm/D5W 55ml IVPB SCH ×2 (20:20)
[2017-12-03 20:33] VITALS: BP 122/72
[2017-12-04] VITALS (7 sets, daily range): BP systolic 122–134; BP diastolic 67–80
[2017-12-04] MEDS: metroNIDAZOLE 500mg tab ORAL SCH (06:24)
[2017-12-04] MEDS: Pantoprazole Inj IVP SCH (08:54)
[2017-12-04] MEDS: Heparin 5000 units/ml inj SUBQ SCH ×2 (08:58→20:52)
--- NOTE | 2017-12-04 11:18 | General Progress Note ---
Progress Note Progress Note Surgery: no acute events. doing well. passing flatus consistently now. tolerating clear liquids. ambulatory and walking up stairs. no n/v/f/c. no pain afebrile, HD stable, exam benign. abd soft, nt/nd, bs+, incision c/d/i. -full liquid diet -d/c IV fluids and IV abx -return home meds to patient and start discharge planning for anticipated discharge tomorrow Qaun Fallon December 04, 2017 11:18
--- NOTE | 2017-12-04 11:55 | GI Progress Note ---
Assessment/Plan Problems: (1) Perforated sigmoid colon ICD Codes: K63.1 - Perforation of intestine (nontraumatic) SNOMED: 165302642 (2) Post-operative nausea and vomiting ICD Codes: R11.2 - Nausea with vomiting, unspecified; Z98.890 - Other specified postprocedural states SNOMED: 4701323 (3) Post-operative pain ICD Codes: G89.18 - Other acute postprocedural pain SNOMED: 648523913 Status: stable, progressing Status Narrative Discussed with Dr. Arellano. Assessment/Plan s/p ex lap with sigmoid resection post operative management >> fu surgical recs -full liquid diet -d/c IV fluids and IV abx -return home meds to patient and start discharge planning for anticipated discharge tomorrow zofran prn pain mgmt IS fu labs outpatient GI procedures The patient was seen and examined at bedside and all new and available data was reviewed in the patients chart. I agree with the above findings, impression and plan. (Patient seen earlier today. Signature stamp does not reflect patient encounter time.). - Toñito Arellano MD Subjective Subjective abdominal pain/bloating improved Objective Last 24 Hour Vital Signs Date Time Temp Pulse Resp B/P (MAP) Pulse Ox O2 Delivery O2 Flow Rate FiO2 12/04/17 09:51 97.8 73 18 122/67 94 Room Air 97.8 12/04/17 08:15 97.8 73 18 122/67 96 Room Air 97.8 12/04/17 04:42 97.9 76 16 127/74 98 97.9 12/04/17 00:45 98.8 69 19 125/68 96 98.8 12/03/17 20:33 98.9 78 19 122/72 96 98.9 12/03/17 16:00 97.0 80 18 137/78 97 Room Air 97.0 12/03/17 12:00 98.1 93 19 146/59 98 Room Air 98.1 Intake and Output 12/03/17 12/04/17 19:00 07:00 Intake Total 450 ml 1665 ml Output Total 7 ml Balance 450 ml 1658 ml Intake Oral 860 ml IV Total 450 ml 805 ml Output Urine Total 6 ml Stool Total 1 ml # Voids 4 Height (Feet): 6 Height (Inches): 0.00 Weight (Pounds): 185 General Appearance: WD/WN, no apparent distress, alert Cardiovascular: normal rate Respiratory/Chest: normal breath sounds, no respiratory distress Abdominal Exam: normal bowel sounds, non tender, soft Extremities: normal range of motion, non-tender Elba Oneill NP December 04, 2017 11:55
--- NOTE | 2017-12-04 12:02 | Infectious Diseases Prog Note ---
Assessment/Plan Assessment/Plan Assessment: Acute sigmoid diverticulitis w/ perforation -s/p Exploratory laparotomy, Sigmoid colectomy, Primary end-to-end anastomosis , Abdominal washout. 11/29 -OR findings: free fluid in the abdomen, some dense adhesions from the sigmoid colon in the pelvis, and an area of perforated sigmoid diverticulitis with surrounding inflammatory tissue, but no gross pus or stool. -CT abd/p: Acute sigmoid diverticulitis. No drainable abscess. Small amount of free air within the peritoneal cavity noted. Other incidental findings include reactive small bowel ileus, small left inguinal hernia, thickening of the urinary bladder wall which may be due to cystitis. Mild leukocytosis, resolved -afebrile -u/a neg HIV (per patient CD4 600s and VL UD ) on ARV for many years (>20years) -current regimen: Tivicay and Prezcobix Plan: -Continue IV Ceftriaxone and PO Flagyl abx d# / ; ok to DC pt off of AB Rx -11/30 SP Zosyn #2 -11/29 SP Unasyn x1, Levaquin #1, Flagyl x1 -f/u cx -Monitor CBC/BMP, temperatures -Resume ARV upon discharge- if he will remain longer in the hospital then to be resumed here with his home medicine as Prezcobix not in hospital formulary. Subjective Allergies: Coded Allergies: No Known Allergies (Unverified , 11/29/17) Subjective started po feeding Afebrile Objective Vital Signs Last 24 Hour Vital Signs Date Time Temp Pulse Resp B/P (MAP) Pulse Ox O2 Delivery O2 Flow Rate FiO2 12/04/17 09:51 97.8 73 18 122/67 94 Room Air 97.8 12/04/17 08:15 97.8 73 18 122/67 96 Room Air 97.8 12/04/17 04:42 97.9 76 16 127/74 98 97.9 12/04/17 00:45 98.8 69 19 125/68 96 98.8 12/03/17 20:33 98.9 78 19 122/72 96 98.9 12/03/17 16:00 97.0 80 18 137/78 97 Room Air 97.0 Height (Feet): 6 Height (Inches): 0.00 Weight (Pounds): 185 HEENT: anicteric Respiratory/Chest: normal breath sounds Cardiovascular: normal rate Abdomen: no organomegaly Current Medications Medications (Trade) Dose Ordered Sig/Didier Route PRN Reason Start Time Stop Time Status Last Admin Dose Admin Acetaminophen (Tylenol) 650 mg Q6H PRN ORAL Mild Pain (Pain Scale 1-3) 11/29/17 23:45 12/29/17 23:44 Al Hydroxide/Mg Hydroxide (Mylanta II) 30 ml Q6H PRN ORAL dyspepsia 11/29/17 21:00 12/29/17 20:59 12/02/17 03:17 Diphenhydramine HCl (Benadryl) 12.5 mg Q6H PRN IVP Itching/Pruritis 11/29/17 23:45 12/29/17 23:44 Heparin Sodium (Porcine) (Heparin 5000 units/ml) 5,000 units EVERY 12 HOURS SUBQ 12/02/17 21:00 01/01/18 20:59 12/04/17 08:58 Ibuprofen (Motrin) 600 mg Q6H PRN ORAL Pain 4-10 12/04/17 11:30 01/03/18 11:29 Temazepam (Restoril) 15 mg HSPRN PRN ORAL Insomnia 11/29/17 21:00 12/06/17 20:59 12/03/17 22:14 Finn Malin MD December 04, 2017 12:02
--- NOTE | 2017-12-04 13:18 | Pulmonology Progress Note ---
Assessment/Plan Problems: (1) Perforated sigmoid colon (2) HIV (human immunodeficiency virus infection) (3) Diverticulitis large intestine (4) Post-operative nausea and vomiting Assessment/Plan all reviewed doing better no new complains ID f/u surgical f/u advance diet dc planning for am Subjective ROS Limited/Unobtainable: No Constitutional: Reports: no symptoms HEENT: Repors: no symptoms Allergies: Coded Allergies: No Known Allergies (Unverified , 11/29/17) Objective Last 24 Hour Vital Signs Date Time Temp Pulse Resp B/P (MAP) Pulse Ox O2 Delivery O2 Flow Rate FiO2 12/04/17 09:51 97.8 73 18 122/67 94 Room Air 97.8 12/04/17 08:15 97.8 73 18 122/67 96 Room Air 97.8 12/04/17 04:42 97.9 76 16 127/74 98 97.9 12/04/17 00:45 98.8 69 19 125/68 96 98.8 12/03/17 20:33 98.9 78 19 122/72 96 98.9 12/03/17 16:00 97.0 80 18 137/78 97 Room Air 97.0 Intake and Output 12/03/17 12/04/17 19:00 07:00 Intake Total 450 ml 1665 ml Output Total 7 ml Balance 450 ml 1658 ml Intake Oral 860 ml IV Total 450 ml 805 ml Output Urine Total 6 ml Stool Total 1 ml # Voids 4 General Appearance: WD/WN HEENT: normocephalic, atraumatic Respiratory/Chest: chest wall non-tender, lungs clear Cardiovascular: normal peripheral pulses, normal rate Abdomen: normal bowel sounds, soft, non tender Genitourinary: normal external genitalia Extremities: no cyanosis Skin: no rash, no lesions Current Medications Medications (Trade) Dose Ordered Sig/Didier Route PRN Reason Start Time Stop Time Status Last Admin Dose Admin Acetaminophen (Tylenol) 650 mg Q6H PRN ORAL Mild Pain (Pain Scale 1-3) 11/29/17 23:45 12/29/17 23:44 Al Hydroxide/Mg Hydroxide (Mylanta II) 30 ml Q6H PRN ORAL dyspepsia 11/29/17 21:00 12/29/17 20:59 12/02/17 03:17 Diphenhydramine HCl (Benadryl) 12.5 mg Q6H PRN IVP Itching/Pruritis 11/29/17 23:45 12/29/17 23:44 Heparin Sodium (Porcine) (Heparin 5000 units/ml) 5,000 units EVERY 12 HOURS SUBQ 12/02/17 21:00 01/01/18 20:59 12/04/17 08:58 Ibuprofen (Motrin) 600 mg Q6H PRN ORAL Pain 4-10 12/04/17 11:30 01/03/18 11:29 Temazepam (Restoril) 15 mg HSPRN PRN ORAL Insomnia 11/29/17 21:00 12/06/17 20:59 12/03/17 22:14 Miki Verdugo MD December 04, 2017 13:18
[2017-12-05 00:23] VITALS: BP 128/72
[2017-12-05 04:25] VITALS: BP 127/76
[2017-12-05 06:15] LABS: BASOPHILS % (AUTO) 0.7 % (0.0-2.0); EOSINOPHILS % (AUTO) 4.6 % (0.0-3.0); HEMATOCRIT 40.1 % (42.0-52.0); LYMPHOCYTES % (AUTO) 22.9 % (20.0-45.0); MEAN CORPUSCULAR VOLUME 89 FL (80-99); MONOCYTES % (AUTO) 10.8 % (1.0-10.0); PLATELET COUNT 239 K/UL (150-450); RED CELL DISTRIBUTION WIDTH 10.3 % (11.6-14.8); WHITE BLOOD COUNT 5.9 K/UL (4.8-10.8)
[2017-12-05 06:34] LABS: ALANINE AMINOTRANSFERASE 111 U/L (12-78); ALBUMIN 2.6 G/DL (3.4-5.0); ALBUMIN/GLOBULIN RATIO 0.7 (1.0-2.7); ALKALINE PHOSPHATASE 88 U/L (46-116); ANION GAP 9 mmol/L (5-15); ASPARTATE AMINO TRANSFERASE 122 U/L (15-37); BILIRUBIN,TOTAL 0.6 MG/DL (0.2-1.0); BLOOD UREA NITROGEN 17 mg/dL (7-18); CALCIUM 8.8 MG/DL (8.5-10.1); CARBON DIOXIDE 23 MMOL/L (21-32); CHLORIDE 103 MMOL/L (98-107); CREATININE 0.8 MG/DL (0.55-1.30); PHOSPHORUS 4.2 MG/DL (2.5-4.9); POTASSIUM 3.9 MMOL/L (3.5-5.1); SODIUM 135 MMOL/L (136-145)
[2017-12-05 08:00] VITALS: BP 141/78
--- NOTE | 2017-12-05 09:47 | GI Progress Note ---
Assessment/Plan Problems: (1) Perforated sigmoid colon ICD Codes: K63.1 - Perforation of intestine (nontraumatic) SNOMED: 340747766 (2) Post-operative nausea and vomiting ICD Codes: R11.2 - Nausea with vomiting, unspecified; Z98.890 - Other specified postprocedural states SNOMED: 0244697 (3) Post-operative pain ICD Codes: G89.18 - Other acute postprocedural pain SNOMED: 245294149 Status: stable, progressing Status Narrative Discussed with Dr. Arellano. Assessment/Plan s/p ex lap with sigmoid resection post operative management >> fu surgical recs -full liquid diet, tolearting -d/c IV fluids and IV abx zofran prn pain mgmt IS fu labs outpatient GI procedures The patient was seen and examined at bedside and all new and available data was reviewed in the patients chart. I agree with the above findings, impression and plan. (Patient seen earlier today. Signature stamp does not reflect patient encounter time.). - Toñito Arellano MD Subjective Subjective abdominal pain/bloating improved Objective Last 24 Hour Vital Signs Date Time Temp Pulse Resp B/P (MAP) Pulse Ox O2 Delivery O2 Flow Rate FiO2 12/05/17 08:00 97.6 73 20 141/78 98 97.6 12/05/17 04:25 97.9 79 19 127/76 96 97.9 12/05/17 00:23 98.2 68 19 128/72 98 98.2 12/04/17 20:26 98.1 71 16 133/76 98 98.1 12/04/17 20:13 98.1 12/04/17 19:14 98.2 12/04/17 16:00 98.2 76 22 125/75 98 Room Air 98.2 12/04/17 12:00 98.9 78 19 134/80 98 Room Air 98.9 12/04/17 09:51 97.8 73 18 122/67 94 Room Air 97.8 Intake and Output 12/04/17 12/05/17 19:00 07:00 Intake Total 200 ml 1170 ml Balance 200 ml 1170 ml Intake Oral 200 ml 1170 ml # Voids 5 Laboratory Tests Test 12/05/17 05:45 White Blood Count 5.9 K/UL (4.8-10.8) Red Blood Count 4.50 M/UL (4.70-6.10) L Hemoglobin 14.0 G/DL (14.2-18.0) L Hematocrit 40.1 % (42.0-52.0) L Mean Corpuscular Volume 89 FL (80-99) Mean Corpuscular Hemoglobin 31.2 PG (27.0-31.0) H Mean Corpuscular Hemoglobin Concent 35.0 G/DL (32.0-36.0) Red Cell Distribution Width 10.3 % (11.6-14.8) L Platelet Count 239 K/UL (150-450) Mean Platelet Volume 7.3 FL (6.5-10.1) Neutrophils (%) (Auto) 61.0 % (45.0-75.0) Lymphocytes (%) (Auto) 22.9 % (20.0-45.0) Monocytes (%) (Auto) 10.8 % (1.0-10.0) H Eosinophils (%) (Auto) 4.6 % (0.0-3.0) H Basophils (%) (Auto) 0.7 % (0.0-2.0) Erythrocyte Sedimentation Rate 45 MM/HR (0-20) H Sodium Level 135 MMOL/L (136-145) L Potassium Level 3.9 MMOL/L (3.5-5.1) Chloride Level 103 MMOL/L (98-107) Carbon Dioxide Level 23 MMOL/L (21-32) Anion Gap 9 mmol/L (5-15) Blood Urea Nitrogen 17 mg/dL (7-18) Creatinine 0.8 MG/DL (0.55-1.30) Estimat Glomerular Filtration Rate > 60 mL/min (>60) Glucose Level 109 MG/DL (74-106) H Calcium Level 8.8 MG/DL (8.5-10.1) Phosphorus Level 4.2 MG/DL (2.5-4.9) Magnesium Level 2.2 MG/DL (1.8-2.4) Total Bilirubin 0.6 MG/DL (0.2-1.0) Aspartate Amino Transf (AST/SGOT) 122 U/L (15-37) H Alanine Aminotransferase (ALT/SGPT) 111 U/L (12-78) H Alkaline Phosphatase 88 U/L (46-116) Total Protein 6.4 G/DL (6.4-8.2) Albumin 2.6 G/DL (3.4-5.0) L Globulin 3.8 g/dL Albumin/Globulin Ratio 0.7 (1.0-2.7) L Height (Feet): 6 Height (Inches): 0.00 Weight (Pounds): 185 General Appearance: WD/WN, no apparent distress, alert Cardiovascular: normal rate Respiratory/Chest: normal breath sounds, no respiratory distress Abdominal Exam: normal bowel sounds, non tender, soft Extremities: normal range of motion, non-tender Ebla Oneill NP December 05, 2017 09:47
[2017-12-05] MEDS: Heparin 5000 units/ml inj SUBQ SCH (10:11)
--- NOTE | 2017-12-05 11:36 | Pulmonology Progress Note ---
Assessment/Plan Problems: (1) Perforated sigmoid colon (2) HIV (human immunodeficiency virus infection) (3) Diverticulitis large intestine (4) Post-operative nausea and vomiting Assessment/Plan all reviewed doing better no new complains ID f/u surgical f/u advance diet dc planning today Subjective ROS Limited/Unobtainable: No Constitutional: Reports: no symptoms HEENT: Repors: no symptoms Respiratory: Reports: no symptoms Allergies: Coded Allergies: No Known Allergies (Unverified , 11/29/17) Objective Last 24 Hour Vital Signs Date Time Temp Pulse Resp B/P (MAP) Pulse Ox O2 Delivery O2 Flow Rate FiO2 12/05/17 08:00 97.6 73 20 141/78 98 97.6 12/05/17 04:25 97.9 79 19 127/76 96 97.9 12/05/17 00:23 98.2 68 19 128/72 98 98.2 12/04/17 20:26 98.1 71 16 133/76 98 98.1 12/04/17 20:13 98.1 12/04/17 19:14 98.2 12/04/17 16:00 98.2 76 22 125/75 98 Room Air 98.2 12/04/17 12:00 98.9 78 19 134/80 98 Room Air 98.9 Intake and Output 12/04/17 12/05/17 19:00 07:00 Intake Total 200 ml 1170 ml Balance 200 ml 1170 ml Intake Oral 200 ml 1170 ml # Voids 5 General Appearance: WD/WN HEENT: normocephalic, atraumatic Respiratory/Chest: chest wall non-tender, lungs clear Cardiovascular: normal peripheral pulses, normal rate Abdomen: normal bowel sounds, soft, non tender Genitourinary: normal external genitalia Skin: no rash Laboratory Tests 12/05/17 05:45: White Blood Count 5.9, Red Blood Count 4.50L, Hemoglobin 14.0L, Hematocrit 40.1L , Mean Corpuscular Volume 89, Mean Corpuscular Hemoglobin 31.2H, Mean Corpuscular Hemoglobin Concent 35.0, Red Cell Distribution Width 10.3L, Platelet Count 239, Mean Platelet Volume 7.3, Neutrophils (%) (Auto) 61.0, Lymphocytes (%) (Auto) 22.9, Monocytes (%) (Auto) 10.8H, Eosinophils (%) (Auto) 4.6H, Basophils (%) (Auto) 0.7, Erythrocyte Sedimentation Rate 45H, Sodium Level 135L, Potassium Level 3.9, Chloride Level 103, Carbon Dioxide Level 23, Anion Gap 9, Blood Urea Nitrogen 17, Creatinine 0.8, Estimat Glomerular Filtration Rate > 60, Glucose Level 109H, Calcium Level 8.8, Phosphorus Level 4.2, Magnesium Level 2.2, Total Bilirubin 0.6, Aspartate Amino Transf (AST/SGOT ) 122H, Alanine Aminotransferase (ALT/SGPT) 111H, Alkaline Phosphatase 88, Total Protein 6.4, Albumin 2.6L, Globulin 3.8, Albumin/Globulin Ratio 0.7L Current Medications Medications (Trade) Dose Ordered Sig/Didier Route PRN Reason Start Time Stop Time Status Last Admin Dose Admin Acetaminophen (Tylenol) 650 mg Q6H PRN ORAL Mild Pain (Pain Scale 1-3) 11/29/17 23:45 12/29/17 23:44 Al Hydroxide/Mg Hydroxide (Mylanta II) 30 ml Q6H PRN ORAL dyspepsia 11/29/17 21:00 12/29/17 20:59 12/02/17 03:17 Diphenhydramine HCl (Benadryl) 12.5 mg Q6H PRN IVP Itching/Pruritis 11/29/17 23:45 12/29/17 23:44 12/05/17 06:42 Heparin Sodium (Porcine) (Heparin 5000 units/ml) 5,000 units EVERY 12 HOURS SUBQ 12/02/17 21:00 01/01/18 20:59 12/05/17 10:11 Ibuprofen (Motrin) 600 mg Q6H PRN ORAL Pain 4-10 12/04/17 11:30 01/03/18 11:29 12/04/17 19:14 Temazepam (Restoril) 15 mg HSPRN PRN ORAL Insomnia 11/29/17 21:00 12/06/17 20:59 12/04/17 20:50 Miki Verdugo MD December 05, 2017 11:36
[2017-12-05 12:00] VITALS: BP 114/56
--- NOTE | 2017-12-05 12:26 | Infectious Diseases Prog Note ---
Assessment/Plan Assessment/Plan Assessment: Acute sigmoid diverticulitis w/ perforation -s/p Exploratory laparotomy, Sigmoid colectomy, Primary end-to-end anastomosis , Abdominal washout. 11/29 -OR findings: free fluid in the abdomen, some dense adhesions from the sigmoid colon in the pelvis, and an area of perforated sigmoid diverticulitis with surrounding inflammatory tissue, but no gross pus or stool. -CT abd/p: Acute sigmoid diverticulitis. No drainable abscess. Small amount of free air within the peritoneal cavity noted. Other incidental findings include reactive small bowel ileus, small left inguinal hernia, thickening of the urinary bladder wall which may be due to cystitis. Mild leukocytosis, resolved -afebrile -u/a neg HIV (per patient CD4 600s and VL UD ) on ARV for many years (>20years) -current regimen: Tivicay and Prezcobix Plan: - ok to DC pt off of AB Rx Cont ARV - 12/04 SP IV Ceftriaxone and PO Flagyl abx d# 6 -11/30 SP Zosyn #2 -11/29 SP Unasyn x1, Levaquin #1, Flagyl x1 -Monitor CBC/BMP, temperatures DW GenSurg. Subjective Allergies: Coded Allergies: No Known Allergies (Unverified , 11/29/17) Subjective probable DC today Afebrile Objective Vital Signs Last 24 Hour Vital Signs Date Time Temp Pulse Resp B/P (MAP) Pulse Ox O2 Delivery O2 Flow Rate FiO2 12/05/17 08:00 97.6 73 20 141/78 98 97.6 12/05/17 04:25 97.9 79 19 127/76 96 97.9 12/05/17 00:23 98.2 68 19 128/72 98 98.2 12/04/17 20:26 98.1 71 16 133/76 98 98.1 12/04/17 20:13 98.1 12/04/17 19:14 98.2 12/04/17 16:00 98.2 76 22 125/75 98 Room Air 98.2 Height (Feet): 6 Height (Inches): 0.00 Weight (Pounds): 185 HEENT: anicteric Respiratory/Chest: no respiratory distress Cardiovascular: regular rhythm Abdomen: no organomegaly Laboratory Tests Test 12/05/17 05:45 White Blood Count 5.9 K/UL (4.8-10.8) Red Blood Count 4.50 M/UL (4.70-6.10) L Hemoglobin 14.0 G/DL (14.2-18.0) L Hematocrit 40.1 % (42.0-52.0) L Mean Corpuscular Volume 89 FL (80-99) Mean Corpuscular Hemoglobin 31.2 PG (27.0-31.0) H Mean Corpuscular Hemoglobin Concent 35.0 G/DL (32.0-36.0) Red Cell Distribution Width 10.3 % (11.6-14.8) L Platelet Count 239 K/UL (150-450) Mean Platelet Volume 7.3 FL (6.5-10.1) Neutrophils (%) (Auto) 61.0 % (45.0-75.0) Lymphocytes (%) (Auto) 22.9 % (20.0-45.0) Monocytes (%) (Auto) 10.8 % (1.0-10.0) H Eosinophils (%) (Auto) 4.6 % (0.0-3.0) H Basophils (%) (Auto) 0.7 % (0.0-2.0) Erythrocyte Sedimentation Rate 45 MM/HR (0-20) H Sodium Level 135 MMOL/L (136-145) L Potassium Level 3.9 MMOL/L (3.5-5.1) Chloride Level 103 MMOL/L (98-107) Carbon Dioxide Level 23 MMOL/L (21-32) Anion Gap 9 mmol/L (5-15) Blood Urea Nitrogen 17 mg/dL (7-18) Creatinine 0.8 MG/DL (0.55-1.30) Estimat Glomerular Filtration Rate > 60 mL/min (>60) Glucose Level 109 MG/DL (74-106) H Calcium Level 8.8 MG/DL (8.5-10.1) Phosphorus Level 4.2 MG/DL (2.5-4.9) Magnesium Level 2.2 MG/DL (1.8-2.4) Total Bilirubin 0.6 MG/DL (0.2-1.0) Aspartate Amino Transf (AST/SGOT) 122 U/L (15-37) H Alanine Aminotransferase (ALT/SGPT) 111 U/L (12-78) H Alkaline Phosphatase 88 U/L (46-116) Total Protein 6.4 G/DL (6.4-8.2) Albumin 2.6 G/DL (3.4-5.0) L Globulin 3.8 g/dL Albumin/Globulin Ratio 0.7 (1.0-2.7) L Current Medications Medications (Trade) Dose Ordered Sig/Didier Route PRN Reason Start Time Stop Time Status Last Admin Dose Admin Acetaminophen (Tylenol) 650 mg Q6H PRN ORAL Mild Pain (Pain Scale 1-3) 11/29/17 23:45 12/29/17 23:44 Al Hydroxide/Mg Hydroxide (Mylanta II) 30 ml Q6H PRN ORAL dyspepsia 11/29/17 21:00 12/29/17 20:59 12/02/17 03:17 Diphenhydramine HCl (Benadryl) 12.5 mg Q6H PRN IVP Itching/Pruritis 11/29/17 23:45 12/29/17 23:44 12/05/17 06:42 Heparin Sodium (Porcine) (Heparin 5000 units/ml) 5,000 units EVERY 12 HOURS SUBQ 12/02/17 21:00 01/01/18 20:59 12/05/17 10:11 Ibuprofen (Motrin) 600 mg Q6H PRN ORAL Pain 4-10 12/04/17 11:30 01/03/18 11:29 12/04/17 19:14 Temazepam (Restoril) 15 mg HSPRN PRN ORAL Insomnia 11/29/17 21:00 12/06/17 20:59 12/04/17 20:50 Finn Malin MD December 05, 2017 12:26
--- NOTE | 2017-12-07 12:39 | Discharge Summary ---
Discharge Summary Discharge Summary Discharge Summary DATE OF ADMISSION: 11/29/2017 DATE OF DISCHARGE: 12/05/2017 CONSULTANTS: Dr. Quan Arellano BRIEF HOSPITAL COURSE: Patient is a 67-year-old male, with history of HIV and IBD presented to ED complaining of 2 weeks intermittent abdominal pain. Pain was 6/10 described to be generalized abdominal cramping pain without any radiation. Patient was passing gas. He had partial relief with Gas-X. He denied nausea, vomiting, diarrhea, constipation, rectal bleed. He had been on antiretrovirals for many years. He was at the PCP office and was noted to have abdominal tenderness, rebound and guarding. He was then sent to ED for further evaluation. On evaluation at ED, blood work with mild leukocytosis, WBC 11. CT of the abdomen and pelvis showed acute sigmoid diverticulitis. There was amount of free air within the peritoneal cavity. Surgical consultation was done for evaluation of perforated diverticulitis. He was placed on nothing by mouth. He was given Zosyn. He was taken immediately to the OR and underwent exploratory laparotomy with sigmoid colectomy, primary end-to-end anastomosis. Postoperatively he was continued on nothing by mouth and was given IV fluid. He was given pain management. He had postop nausea and vomiting. He was given symptomatic treatment with Zofran prn. He was encouraged use of incentive spirometry. He was seen by infectious disease specialist. Zosyn was switched to IV ceftriaxone and Flagyl. He was continued on his antiretroviral medication Tivicay and Prezcobix. Diet was slowly advanced. He was passing flatus and was tolerating diet. He was ambulating well and was walking up the stairs. There was no nausea or vomiting no fever or chills. Abdomen was soft nontender and nondistended with positive bowel sounds. Incision was clean dry and intact. IV fluids and IV antibiotics were discontinued. He was eventually cleared for discharge home FINAL DIAGNOSES: Acute sigmoid diverticulitis with perforation Status post exploratory laparotomy, sigmoid colectomy, primary end-to-end anastomosis, abdominal washout on 11/29/2017 HIV Postop nausea and vomiting Postoperative pain DISPOSITION: Patient was discharged home. DISCHARGE MEDICATIONS: Refer to Discharge Medication List. DISCHARGE INSTRUCTIONS: Follow up with PCP in a week. I have been assigned to dictate discharge summary on this account, and I was not involved in the patient's management. Carmen Haji NP December 07, 2017 12:39
== END 2017-12-05 13:00 | disposition home or self-care (01) | DRG 329 ==
LOC: EMR 16:03 → UNDOADMIN 18:52 → ICU 18:52 → EDBEDREQ 11-30 00:08 → 3E 11-30 00:30 → ICU 11-30 00:30
PROC: 0DTN0ZZ Resection of Sigmoid Colon, Open Approach (ICD-10-PCS; principal; 2017-11-29 20:00)
DX: K57.20 Diverticulitis of large intestine with perforation and abscess without bleeding (principal); B20 Human immunodeficiency virus [HIV] disease; R11.2 Nausea with vomiting, unspecified; G89.18 Other acute postprocedural pain
CPT/HCPCS: 36415; 74177; 80048; 80053; 81003; 82150; 83690; 83735; 84100; 85025; 85610; 85651; 85730; 86850; 86900; 86901; 87081; 99285; J2250; J2405